=== PATIENT | male | born 1955 | race Caucasian/White ===

== ENCOUNTER 2017-08-01 12:51 | Inpatient (IN) ==
[2017-08-01] MEDS ORDERED: Aspirin 325 MG TABLET PO ONE (13:13)
[2017-08-01] MEDS ORDERED: 0.9 % Sodium Chloride 1,000 ML IVC ONE (13:33)
--- NOTE | 2017-08-01 13:37 | Emergency Department Note ---
Disposition Clinical Impression: Atrial fibrillation with RVR Disposition: Admitted As Inpatient Condition: Fair Referrals: Jr Melo DO [Primary Care Provider] - Forms: ED Satisfaction Letter Time of Disposition: 15:55 General Adult HPI - General Chief complaint: ED Arrhythmia/Palpitations Stated complaint: A-fib, needs admitted Time Seen by Provider: 08/01/17 13:12 Source: patient Mode of arrival: ambulatory Limitations: no limitations Nursing Notes Reviewed: Yes Vital Signs Reviewed: Yes - History of Present Illness HPI Narrative: 62 old male presents to the emergency department from Dr. Franklin's office for fast heart rate. Patient does have history of atrial fibrillation. But is not on any medications for rate control or rhythm control. This is not always any according to the patient. Patient does state that he is on Xarelto . History on proximally one year ago. Patient states the last 2 days he has had mild chest pressures. He says his main L left-sided nonradiating he describes as 3 out of 10. Today he is having 0 pain [address] that [address] Chamorro was worried about his heart rate now slightly sent him over here to be admitted for further evaluation. Patient is not having any nausea or vomiting he has no radiation of the pain. Patient is otherwise in have no complaints. Including no headaches, blurry vision, neck pain, back pain, fevers, chills, nausea, vomiting , chest pain, shortness of breath, abdominal pain, pain or tingling going down the arms or legs or any generalized weakness. Pain Scale: 2 - Related Data Home Medications Medication Instructions Recorded Confirmed Albuterol Sulfate [Ventolin Hfa] 18 gm IH Q4H PRN 05/02/16 08/30/16 Budesonide/Formoterol 80/4.5 1 puff IH DAILY 05/02/16 08/30/16 [Symbicort 80/4.5] Cetirizine HCl [Zyrtec] 10 mg PO DAILY 05/02/16 08/30/16 Cyclobenzaprine [Flexeril] 10 mg PO HS 05/02/16 08/30/16 Gabapentin [Neurontin] 300 mg PO TID 05/02/16 08/30/16 HYDROcodone/Acet 5/325 mg [[place] 1 tab PO Q6H PRN 05/02/16 08/30/16 5-325 mg] Metoprolol [Lopressor] 150 mg PO DAILY 05/02/16 08/30/16 Omeprazole 40 mg PO DAILY 05/02/16 08/30/16 Previous Rx's Medication Instructions Recorded Promethazine/Codeine 5 ml PO Q6HR PRN #120 ml 05/02/16 [Phenergan/Codeine] Allergies Allergy/AdvReac Type Severity Reaction Status Date / Time No Known Allergies Allergy Verified 12/17/15 18:01 Review of Systems: 10 point review of systems done and negative unless otherwise stated in the history of present illness. All systems ED: reviewed and negative except as stated. Review of Systems: As Per HPI Past Medical History - Past Medical History Attestation: Yes The following information was validated with the patient. Source: patient Medical history: Reports: arthritis, atrial fibrillation, COPD, myocardial infarction Psychiatric history: Reports: no psych history - Social History Smoking Status: Current every day smoker Smokeless Tobacco Status: No Alcohol use: Reports: none Drug use: Reports: none Physical Exam - General Limitations: no limitations General appearance: alert - Head Head exam: atraumatic, normocephalic, normal inspection - Eye Eye exam: Present: normal appearance, PERRL, EOMI - ENT ENT exam: normal exam, normal oropharynx, mucous membranes moist - Neck Neck exam: Present: normal inspection, full ROM, trachea midline - Chest Chest inspection: Present: normal inspection, symmetric chest wall rise - Respiratory Respiratory exam: Present: normal lung sounds bilaterally - Cardiovascular Cardiovascular exam: Present: tachycardia, irregular rhythm, normal heart sounds - Abdominal Exam Abdominal exam: Present: soft, Non-Tender. Absent: tenderness, distention, guarding, rebound, rigidity - Extremities Exam Extremities exam: Present: normal inspection, full ROM. Absent: tenderness, pedal edema - Expanded Lower Extremity Exam Neurovascular/Tendon exam: Present: normal capillary refill. Absent: pulse deficit, motor deficit, sensory deficit, tendon deficit Gait: observed and normal - Back Exam Back exam: Present: normal inspection, full ROM. Absent: tenderness, CVA tenderness (R), CVA tenderness (L) - Neurological Exam Neurological exam: Present: alert, oriented X3 - Skin Skin exam: Present: warm, dry, intact, normal color Course Course Narrative: We will do basic chest pain workup and arrhythmia workup including CBC, BMP, troponin as well as EKG and chest x-ray, thyroid. Will give aspirin. Disposition pending results of most likely this is admission. - Reevaluation(s) Reevaluation #1: EKG came back showing A. fib with RVR patient has a blood pressure 107 systolic due to this we will start low on his diltiazem drip will not give a bolus. We will start a 0.5 mg. Time: 14:38 Vital Signs Temperature 97.7 F 08/01/17 13:01 Pulse Rate 139 08/01/17 13:01 Respiratory Rate 18 08/01/17 13:01 Blood Pressure 107/86 08/01/17 13:01 O2 Sat by Pulse Oximetry 98 08/01/17 13:01 Temperature 97.7 F 08/01/17 13:01 Pulse Rate 154 08/01/17 15:36 Respiratory Rate 20 08/01/17 15:36 Blood Pressure 105/87 08/01/17 15:36 O2 Sat by Pulse Oximetry 94 08/01/17 15:36 Oxygen Delivery Oxygen Delivery Room Air Medical Decision Making - MDM Narrative Medical decision making narrative: 62-year-old male presented to the emergency department complaining of mild chest pain has since gone away since he came here. We did give patient aspirin. He was here with A. fib with RVR. EKG did show that. Did start patient on a diltiazem drip due to patient being hypotensive at 107 systolic we started at 0.5 mg and we will titrate up from there pending his blood pressure holds. Also gave him IV fluids helped the pressure. All patient's labs came back normal. Including a chest x-ray. He had a negative troponin. Patient is currently anticoagulated with Xarelto. Patient will be admitted to the hospitalist service I spoke with Dr. Kline who agreed to accept the patient. He said prior to him going up he would like us to give 0.5 mg of IV digoxin for a loading dose. I did order this. Patient is admitted in stable condition. Chest X-Ray 08/01/17 13:13 IMPRESSION: 1. Worsening pulmonary edema. D/ / Fritz Bernstein MD / Fritz Bernstein MD Interpreting Provider: Fritz Bernstein MD - Medical Records Medical records reviewed: Yes I reviewed the patient's medical records. - Lab Data Lab results reviewed: Yes I reviewed the patient's lab results. Result diagrams: 08/01/17 13:30 08/01/17 13:30 Lab Results 08/01/17 08/01/17 08/01/17 Range/Units 13:30 13:30 13:30 WBC 11.1 (4.3-11.1) K/mcL RBC 4.15 L (4.19-5.50) M/mcL Hgb 13.5 (12.9-16.9) g/dL Hct 40.7 (37.5-50.1) % MCV 98.1 (83.0-100.0) fL MCH 32.5 (28.0-33.3) pg MCHC 33.2 (31.6-35.5) g/dL RDW 14.8 H (11.5-14.5) % Plt Count 228 (140-400) K/mcL MPV 9.6 (9.4-12.4) fL Immature Gran % 0.4 (0-4) % Seg Neutrophils % 64.4 % Lymphocytes % 26.1 % Monocytes % 8.1 % Eosinophils % 0.6 % Basophils % 0.4 % Neutrophils # 7.2 (1.6-8.9) K/mcL Lymphocytes # 2.9 (0.6-4.6) K/mcL Monocytes # 0.9 (0.0-1.3) K/mcL Eosinophils # 0.1 (0.0-0.6) K/mcL Basophils # 0.0 (0.0-0.2) K/mcL PT 16.3 H (9.4-12.1) Seconds INR 1.5 APTT 35.4 (26.0-36.0) Seconds Sodium 136 (136-145) mEq/L Potassium 4.0 (3.5-5.1) mEq/L Chloride 108 H (98-107) mEq/L Carbon Dioxide 22 L (23-29) mEq/L BUN 16 (8-23) mg/dL Creatinine 0.89 (0.70-1.30) mg/dL Est GFR ( Amer) > 60 (> 60) Est GFR (Non-Af Amer) > 60 (> 60) BUN/Creatinine Ratio 18 (6-26) Glucose 121 H (70-105) mg/dL Calculated Osmolality 284 (280-300) Calcium 9.6 (8.6-10.3) mg/dL Magnesium 2.1 (1.6-2.6) mg/dL Troponin I (< 0.04) ng/mL TSH 1.616 (0.340-5.600) mcIU/mL 08/01/17 Range/Units 13:30 WBC (4.3-11.1) K/mcL RBC (4.19-5.50) M/mcL Hgb (12.9-16.9) g/dL Hct (37.5-50.1) % MCV (83.0-100.0) fL MCH (28.0-33.3) pg MCHC (31.6-35.5) g/dL RDW (11.5-14.5) % Plt Count (140-400) K/mcL MPV (9.4-12.4) fL Immature Gran % (0-4) % Seg Neutrophils % % Lymphocytes % % Monocytes % % Eosinophils % % Basophils % % Neutrophils # (1.6-8.9) K/mcL Lymphocytes # (0.6-4.6) K/mcL Monocytes # (0.0-1.3) K/mcL Eosinophils # (0.0-0.6) K/mcL Basophils # (0.0-0.2) K/mcL PT (9.4-12.1) Seconds INR APTT (26.0-36.0) Seconds Sodium (136-145) mEq/L Potassium (3.5-5.1) mEq/L Chloride (98-107) mEq/L Carbon Dioxide (23-29) mEq/L BUN (8-23) mg/dL Creatinine (0.70-1.30) mg/dL Est GFR ( Amer) (> 60) Est GFR (Non-Af Amer) (> 60) BUN/Creatinine Ratio (6-26) Glucose (70-105) mg/dL Calculated Osmolality (280-300) Calcium (8.6-10.3) mg/dL Magnesium (1.6-2.6) mg/dL Troponin I < 0.03 (< 0.04) ng/mL TSH (0.340-5.600) mcIU/mL - Radiology Data Radiology results reviewed: Yes I reviewed the patient's radiology results. - EKG Data EKG #1 EKG attestation: Yes I reviewed and interpreted this EKG. EKG results narrative: EKG done at 1306 revealed myself and attending shows atrial fibrillation with RVR at a rate of 149, QRS 92, QTC 361 with a normal axis. There is no acute ST changes no acute T-wave abnormalities nor signs of ischemia. No signs of hypertrophy or heart strain or heart block. No signs of WPW/Brugada syndrome. This is compared with an old EKG done 12/17/15 which shows essentially no changes and also A. fib with RVR. Attestation Statement - Attestation Attestation: I, Jeremy Temple DO, examined this patient [id number] and my medical decision-making was reviewed with Dr. Moisés Joseph, Resident Physician. I agree with the documented findings, disposition and treatment plan as described except to the extent set forth below. Please see my progress notes for details. 62-year-old male presents from the cardiology office today for evaluation of increased work of breathing some mild exertional shortness of breath and tachycardia with A. fib RVR. Patient was seen and evaluated in outside facility within the last several months and was told that he possibly had A. fib. Patient started on Xarelto that time. He is already have a scheduled appointment with his private sector executive for repeat evaluation. While there they noticed his heart rate was significantly high. Patient denies any other symptoms or issues at this time. Patient is otherwise resting comfortably in the bed. On presentation here this is a very healthy gentleman with no other significant medical history according to him. Patient denies any trauma or injury. No recent medication changes except for this relative. Vital signs on presentation showed slight hypotension. His heart rate was 140. He denies any other symptomatic presentation this time. EKG does confirm A. fib with RVR. Labs otherwise unremarkable. No acute signs of electrolyte abnormality at this point. Patient was discussed with the hospitalist for admission considering the physical exam workup otherwise unremarkable. He does have a known mitral regurgitation with without any other issue. Hospitalist did recommend adding on digoxin secondary to heart rate. We are slowly titrating up the Cardizem secondary to the hypotension. Vital signs otherwise been stable except for tachycardia. Patient is again still denying any symptoms or complaints. Is currently on Xarelto. Patient will be admitted for further evaluation and management. No other concerns or issues noted at this time. See detailed documentation of physical exam, medical intervention, medical decision-making and disposition and the resident physician's note. 35 minutes of critical care present secondary to the attributable IV medication. 1600 Patient is still feeling well. Heart rate is not responding aggressively to the Cardizem. His blood pressure has still been labile. Patient is asymptomatic. Digoxin will be added on for rate control with the concern for hypotension. No other acute issues are noted. Patient will be admitted to the floor without any other concerns or abnormality.
[2017-08-01 13:41] LABS: Basophils % 0.4 %; Eosinophils # 0.1 K/mcL (0.0-0.6); Eosinophils % 0.6 %; Hematocrit 40.7 % (37.5-50.1); Hemoglobin 13.5 g/dL (12.9-16.9); Immature Granulocytes % 0.4 % (0-4); Lymphocytes # 2.9 K/mcL (0.6-4.6); Lymphocytes % 26.1 %; Mean Corpuscular HGB Conc 33.2 g/dL (31.6-35.5); Mean Corpuscular Hemoglobin 32.5 pg (28.0-33.3); Mean Corpuscular Volume 98.1 fL (83.0-100.0); Mean Platelet Volume 9.6 fL (9.4-12.4); Monocytes # 0.9 K/mcL (0.0-1.3); Monocytes % 8.1 %; Neutrophils # 7.2 K/mcL (1.6-8.9); Platelet Count 228 K/mcL (140-400); Red Blood Count 4.15 M/mcL (4.19-5.50); Red Cell Distribution Width 14.8 % (11.5-14.5); Segmented Neutrophils % 64.4 %
[2017-08-01 13:48] LABS: INR 1.5; Prothrombin Time 16.3 Seconds (9.4-12.1)
[2017-08-01 13:51] LABS: Activated Partial Thrombo Time 35.4 Seconds (26.0-36.0)
[2017-08-01 14:01] LABS: BUN/Creatinine Ratio 18 (6-26); Blood Urea Nitrogen 16 mg/dL (8-23); Calcium 9.6 mg/dL (8.6-10.3); Carbon Dioxide 22 mEq/L (23-29); Chloride 108 mEq/L (98-107); Glucose 121 mg/dL (70-105); Magnesium 2.1 mg/dL (1.6-2.6); Osmolality,Calculated 284 (280-300); Sodium 136 mEq/L (136-145); eGFR For African Americans > 60 (> 60); eGFR For Non-African Americans > 60 (> 60)
[2017-08-01 14:16] LABS: Thyroid Stimulating Hormone 1.616 mcIU/mL (0.340-5.600)
[2017-08-01] MEDS ORDERED: *HR* Digoxin 0.5 MG/2 ML AMPUL IVP ONE ×2 (15:46→18:48)
[2017-08-01] MEDS ORDERED: 0.9 % Sodium Chloride 500 ML IVC ONE (18:49)
[2017-08-01] MEDS ORDERED: *HR* HYDROcodone/Acet 5/325 mg TABLET PO PRN (19:45)
[2017-08-01] MEDS ORDERED: *HR* Metoprolol 5 MG/5 ML VIAL IVP ONE (19:46)
--- NOTE | 2017-08-01 21:23 | Internal Med History&Physical ---
Date of Encounter: 08/01/17 Time of Encounter: 17:00 Assessment and Plan (1) Atrial fibrillation with RVR Current visit: Yes Status: Acute -Patient's atrial fibrillation not controlled on metoprolol 150 mg daily and was sent to the ER by back tender pulp drier -Patient's blood pressure is not able to tolerate Cardizem drip and has not responded to digoxin. -Discussed with cardiology and recommendations for amiodarone drip -Cardiology consulted and will be following (2) COPD (chronic obstructive pulmonary disease) Current visit: Yes Status: Acute -Continue Symbicort Qualifiers: COPD type: unspecified COPD Qualified Code(s): J44.9 - Chronic obstructive pulmonary disease, unspecified (3) GERD (gastroesophageal reflux disease) Current visit: Yes Status: Acute -Continue omeprazole Qualifiers: Esophagitis presence: esophagitis presence not specified Qualified Code(s) : K21.9 - Gastro-esophageal reflux disease without esophagitis (4) DVT prophylaxis Current visit: Yes Status: Acute -Continue Xarelto Internal Medicine - H&P: HPI Chief complaint: palipatations Admitted From: Home History of present illness: Patient is a 62-year-old male with past medical history significant for atrial fibrillation, coronary artery disease and COPD who presented to the ER on due to palpitations. Patient was sent to the ER from back tender pulp drier office due tachycardia. In the ER, patient was found to have a heart rate in the 150s. Patient will be admitted to the medical surgical floor for management of major fibrillation with RVR. Past Med Surg Social Fam HX - Past Medical History Medical history: arthritis, atrial fibrillation, COPD, myocardial infarction Psychiatric history: no psych history - Past Surgical History Surgical History: orthopedic, other - Social History Smoking Status: Current every day smoker Packs per day: 1/2 Smokeless Tobacco Status: No Alcohol use: none Drug use: none - Family History Mother Hx Family Cardiac Disorders: Yes Father Hx Family Cancer: Yes Brother Hx Family Respiratory Disorders: Yes (infant.) Internal Medicine - H&P: Meds Albuterol Sulfate [Ventolin Hfa] 18 gm IH Q4H PRN 05/02/16 [History] Budesonide/Formoterol 80/4.5 [Symbicort 80/4.5] 1 puff IH DAILY 05/02/16 [ History] Cetirizine HCl [Zyrtec] 10 mg PO DAILY 05/02/16 [History] Cyclobenzaprine [Flexeril] 10 mg PO HS 05/02/16 [History] Gabapentin [Neurontin] 300 mg PO TID 05/02/16 [History] HYDROcodone/Acet 5/325 mg [[place] 5-325 mg] 1 tab PO Q6H PRN 05/02/16 [History] Metoprolol [Lopressor] 150 mg PO DAILY 05/02/16 [History] Omeprazole 40 mg PO DAILY 05/02/16 [History] Promethazine/Codeine [Phenergan/Codeine] 5 ml PO Q6HR PRN #120 ml 05/02/16 [Rx] 3 Allergy/AdvReac Type Severity Reaction Status Date / Time No Known Allergies Allergy Verified 12/17/15 18:01 All Systems PM: A 10-system review of systems was performed and is negative for pertinent findings except as documented above in the HPI. - Constitutional Vitals: Temp Pulse Resp BP Pulse Ox 98.1 F 139 16 105/64 92 08/01/17 19:02 08/01/17 19:16 08/01/17 19:02 08/01/17 20:30 08/01/17 19:02 General appearance: Present: A&O X 3 - Eye Eye exam: Absent: conjunctival injection - ENT ENT exam: Present: mucous membranes moist - Respiratory Respiratory exam: Present: CTAB. Absent: accessory muscle use, rales, rhonchi, wheezes - Cardiovascular Cardiovascular exam: Present: irregular rhythm, tachycardia - GI/Abdominal GI/Abdominal exam: Present: normal bowel sounds, soft, no peritoneal signs. Absent: distended, tenderness - Neurological Exam Neurological exam: Present: oriented X3 - Psychiatric Psychiatric exam: Present: normal mood - Skin Skin exam: Present: normal color Internal Med - H&P Results - Labs CBC & Chem 7: 08/01/17 13:30 08/01/17 13:30
[2017-08-01] MEDS ORDERED: Naloxone 0.4 MG/ML INJ IVP PRN (21:39)
[2017-08-01] MEDS ORDERED: *HR* Heparin 5,000 UNIT/ML VIAL SQ SCH (22:00)
[2017-08-01] MEDS ORDERED: Amiodarone Premix 360 MG/200 ML BAG IVC ONE (22:00)
[2017-08-01] MEDS ORDERED: Pantoprazole 40 MG VIAL IVP ONE (22:09)
[2017-08-02] MEDS ORDERED: Ondansetron 4 MG/2 ML VIAL ONE (01:59)
[2017-08-02] MEDS: Ondansetron 4 MG/2 ML VIAL IVP PRN ×2 (02:03→02:51)
[2017-08-02] MEDS ORDERED: *HR* Promethazine 25 MG/ML VIAL IVP ONE (02:43)
[2017-08-02] MEDS ORDERED: *HR* Promethazine 25 MG/ML VIAL ONE (02:47)
[2017-08-02] MEDS ORDERED: Naloxone 0.4 MG/ML INJ IVP PRN (03:03)
[2017-08-02] MEDS ORDERED: Amiodarone Premix 360 MG/200 ML BAG IVC SCH (04:00)
[2017-08-02] MEDS: Amiodarone Premix 360 MG/200 ML BAG IVC SCH ×2 (04:37→18:07)
[2017-08-02] MEDS: *HR* Enoxaparin 120 MG/0.8 ML SYRINGE SQ SCH ×2 (04:38→18:02)
[2017-08-02 05:50] LABS: Basophils # 0.1 K/mcL (0.0-0.2); Basophils % 0.5 %; Eosinophils # 0.2 K/mcL (0.0-0.6); Eosinophils % 2.2 %; Hematocrit 38.2 % (37.5-50.1); Hemoglobin 12.5 g/dL (12.9-16.9); Immature Granulocytes % 0.3 % (0-4); Lymphocytes # 3.1 K/mcL (0.6-4.6); Mean Corpuscular HGB Conc 32.7 g/dL (31.6-35.5); Mean Corpuscular Hemoglobin 32.7 pg (28.0-33.3); Mean Platelet Volume 9.5 fL (9.4-12.4); Monocytes # 0.9 K/mcL (0.0-1.3); Monocytes % 7.9 %; Neutrophils # 6.7 K/mcL (1.6-8.9); Platelet Count 186 K/mcL (140-400); Red Blood Count 3.82 M/mcL (4.19-5.50); Red Cell Distribution Width 14.9 % (11.5-14.5); Segmented Neutrophils % 61.1 %
[2017-08-02] MEDS ORDERED: *HR* Enoxaparin 120 MG/0.8 ML SYRINGE SQ SCH (06:00)
[2017-08-02 06:08] LABS: BUN/Creatinine Ratio 15 (6-26); Blood Urea Nitrogen 15 mg/dL (8-23); Calcium 8.7 mg/dL (8.6-10.3); Carbon Dioxide 26 mEq/L (23-29); Chloride 111 mEq/L (98-107); Glucose 105 mg/dL (70-105); Osmolality,Calculated 293 (280-300); Sodium 141 mEq/L (136-145); eGFR For African Americans > 60 (> 60); eGFR For Non-African Americans > 60 (> 60)
[2017-08-02] MEDS: *HR* HYDROcodone/Acet 5/325 mg TABLET PO PRN ×2 (10:03→21:32)
--- NOTE | 2017-08-02 10:42 | Cardiology Consult Note ---
Date of Encounter: 08/02/17 Time of Encounter: 09:00 Assessment and Plan (1) Atrial fibrillation with RVR Current Visit: Yes Status: Acute Per cardiology: -Admitted with a.fib RVR from primary narrative writer office. -Recently treated for pneumonia at outside facility, -Chads 2vasc 0. Was not previously on anticoagulation until seen by outside facility, was then started on xarelto 15mg. -Of note, creatinine clearance with ideal body weight 99ml/min. Has missed doses of xarelto in the past 30 days. -Pateint placed on therapeutic lovenox per primary service. -Currently on amiodarone drip, did not tolerate cardizem due to hypotension. -BP currently 100-110s. -K, Mg, TSH within normal limits. -Continue amiodarone drip. -Will attempt to start low dose beta roland if BP will allow. -Will check TTE. -Will decide regarding terminal gauger anticoagulation pending TTE. -Will continue to monitor. (2) Mitral valve prolapse Current Visit: Yes Status: Acute Per cadiology: -KNown MVP . -TTE 08/2016 with LVEF 55%, moderate diastolic dysfunction, bileaflet mitral valve prolapse, mild NH, no segmental wall motion abnormalities. -Will repeat TTE. (3) Tobacco abuse Current Visit: Yes Status: Acute Per cardiology: -KNown tobacco abuse. -SMoking 1-07/07 ppd. -Smoking cessation education provided. Discussion w patient/family: The assessment and plan as outlined above was discussed with the patient and/or family members who expressed understanding and agreement. All questions were answered. Thank you for involving us in the care of your patient. Please call with any questions. Discussed and reviewed with . History of Present Illness Consult date: 08/01/17 Requesting physician: Carlos Mitchell Consult reason: a.fib RVR Chief complaint: high HR History of present illness: Mr. Ahmadi is a 62 year old male with a relevant past medical history of PAF, MVP, asthma, COPD. Patient presented to [facility] after being seen by his primary narrative writer, , and noted to be in atrial fibrillation with RVR. Patient denies chest pain. Patient reports he feels more short of breath than usual. Denies palpitations/fluttering. Of note, patient was not previously on anticoagulation, however was evaluated at an outside facility and started on xarelto 15mg daily. Patient states he started this medication on 07/07/17 and has missed doses since inititation. Patient reports he was treated for pneumonia at outside facility. Past Med Surg Social Fam HX - Past Medical History Attestation: Yes The following information was validated with the patient. Source: patient, old records reviewed, obtained from family Medical history: arthritis, atrial fibrillation, COPD, myocardial infarction Psychiatric history: no psych history - Past Surgical History Surgical History: orthopedic, other - Social History Smoking Status: Current every day smoker Packs per day: 1/2 Smokeless Tobacco Status: No Alcohol use: none Drug use: none - Family History Mother Hx Family Cardiac Disorders: Yes Father Hx Family Cancer: Yes Brother Hx Family Respiratory Disorders: Yes (infant.) Medications and Allergies Albuterol Sulfate [Ventolin Hfa] 2 inh IH Q4H PRN 05/02/16 [History] Cetirizine HCl [Zyrtec] 10 mg PO DAILY 05/02/16 [History] Cyclobenzaprine [Flexeril] 10 mg PO HS 05/02/16 [History] Gabapentin [Neurontin] 300 mg PO HS 05/02/16 [History] HYDROcodone/Acet 5/325 mg [[place] 5-325 mg] 1 tab PO BID PRN 05/02/16 [History] Omeprazole 40 mg PO DAILY 05/02/16 [History] Albuterol Neb [Proventil Neb] 2.5 mg IH Q4HR 08/02/17 [History] Budesonide/Formoterol 160/4.5 [Symbicort 160/4.5] 2 puff IH BIDR 08/02/17 [ History] Metoprolol Succinate 150 mg PO DAILY 08/02/17 [History] Pravastatin Sodium [Pravachol] 40 mg PO HS 08/02/17 [History] Rivaroxaban [Xarelto] 15 mg PO 1700 08/02/17 [History] 3 Allergy/AdvReac Type Severity Reaction Status Date / Time No Known Allergies Allergy Verified 08/02/17 09:18 All Systems Review: A 10-system review of systems was performed and is negative for pertinent findings except as documented above in the HPI. - Cardiovascular Cardiovascular: as per HPI, dyspnea on exertion, rapid heart rate Physical Examination Vital Signs, Last 4 Hours Temp Pulse Resp BP Pulse Ox 08/02/17 07:10 98.3 F 106 19 111/88 91 General: Conversant, No Apparent Distress HEENT: Atraumatic, Normocephaly, Mucus Membranes Moist Neck: No JVD, Normal carotid pulses Cardiac: Other (Irregularly irregular) Lungs: Normal Breath Sounds, No Wheeze, Rales, Rhonchi Neuro: Alert and responsive, No focal deficits noted Abdomen: Soft, Non-Tender Skin: No rashes noted on visualized skin Musculoskeletal: No Chest Wall Tenderness Extremities: No Clubbing, No Cyanosis, No Edema, Normal Pulses Results 08/02/17 05:42 08/02/17 05:42 Lab Results Impressions Chest X-Ray 08/01/17 13:13 IMPRESSION: 1. Worsening pulmonary edema. D/ / Fritz Bernstein MD / Fritz Bernstein MD Interpreting Provider: Fritz Bernstein MD Active Medications Hydrocodone Bitart/Acetaminophen ([place] 5-325 Mg) 1 tab PO Q6HR PRN PRN Reason: Pain Stop: 01/31/18 19:46 Last Admin: 08/02/17 10:03 Dose: 1 tab Enoxaparin Sodium (Lovenox) 110 mg 1 mg/kg (110 mg) SQ Q12HR ADAM PRN Reason: Protocol Stop: 02/01/18 06:01 Last Admin: 08/02/17 04:38 Dose: 110 mg Amiodarone HCl/Dextrose (Amiodarone Drip Premix 360mg/200ml) 360 mg in 200 mls @ 16.667 mls/hr IVC CONT ADAM PRN Reason: 0.5 MG/MIN Stop: 01/31/18 05:01 Last Admin: 08/02/17 04:37 Dose: 0.5 mg/min, 16.667 mls/hr Naloxone HCl (Narcan) 0.4 mg IVP Q2MIN PRN PRN Reason: SEE COMMENTS Stop: 01/31/18 21:40 Laboratory Tests 08/01/17 08/01/17 08/02/17 13:30 13:30 05:42 Hgb 12.5 L Potassium Creatinine Magnesium Troponin I < 0.03 TSH 1.616 08/02/17 08/02/17 08/02/17 05:42 05:42 05:42 Hgb Potassium 4.0 Creatinine 0.99 Magnesium 2.1 Troponin I < 0.03 TSH - Imaging and Cardiology Chest Xray: report reviewed Echo: pending, report reviewed - EKG Interpretation EKG results cardiology: personally reviewed (ECG with atrial fibrillation with RVR.), other (Telemetry reviewed with average HR previous 12 hours noted to be 127, atrial fibrllation with RVR.) Consult Discharge Plan - Plan Referrals: Shasha Manning CNP [Advanced Practice Nurse] - 08/14/17 9:30 am Houston Franklin MD [Partnered Physician] - (Office will call you at home with a follow up appointment)
--- NOTE | 2017-08-02 11:14 | Internal Med Progress Note ---
Date of Encounter: 08/02/17 Time of Encounter: 11:12 - Assessment and plan (1) Acute respiratory failure with hypoxia Current Visit: Yes Status: Acute Assessment and plan: Continue with O2 support and wean down as tolerated. Plan as below. (2) CHF exacerbation Current Visit: Yes Status: Acute Assessment and plan: Likely an acute exacerbation of diastolic heart failure. We will give the patient 20 mg of IV Lasix this morning. Continue with O2 support. Wean down as tolerated. Follow-up on echo. Continue with nebulizers. Qualifiers: Congestive heart failure type: diastolic Qualified Code(s): I50.33 - Acute on chronic diastolic (congestive) heart failure (3) Atrial fibrillation with RVR Current Visit: Yes Status: Acute Assessment and plan: Communications Project Lead consulted and following. I appreciate their help. Continue with amiodarone drip. Beta roland is ordered. Follow up on echo. Anticoagulation with therapeutic Lovenox currently. Follow up on cardiology's recommendations regarding discharge anticoagulation (4) COPD (chronic obstructive pulmonary disease) Current Visit: Yes Status: Acute Assessment and plan: Not in exacerbation. Continue nebs. Continue Symbicort Qualifiers: COPD type: unspecified COPD Qualified Code(s): J44.9 - Chronic obstructive pulmonary disease, unspecified (5) Tobacco abuse Current Visit: Yes Status: Acute Assessment and plan: Will add a nicotine patch. patient is counseled. (6) DVT prophylaxis Current Visit: Yes Status: Acute Assessment and plan: Therapeutic Lovenox - Subjective Interval history: Patient was seen and examined. Admitted from the automotive glazier's office with Damion stuart with RVR. Started on amiodarone drip. Was given digoxin yesterday. Cardizem drip could not be started as blood pressure was on the lower side. Rate is better controlled currently. Cardiology is consulted. Has been afebrile. Denies any chest pain. Currently on 2 L of oxygen. - Constitutional Vitals: Temp Pulse Resp BP Pulse Ox 98.3 F 106 19 111/88 91 08/02/17 07:10 08/02/17 07:10 08/02/17 07:10 08/02/17 07:10 08/02/17 07:10 General appearance: Present: A&O X 3 Exam: GEN: NAD CVS: Irregular. Tachycardic. S1, S2, No m/r/g RESP: Crackles at the bases ABD: Soft, NT, ND, +BS EXT: No edema. 2+ DP. No rashes NEURO: Nonfocal Internal Medicine: Result - Labs CBC & Chem 7: 08/02/17 05:42 08/02/17 05:42 Labs: Short CBC 08/02/17 Range/Units 05:42 WBC 11.0 (4.3-11.1) K/mcL Hgb 12.5 L (12.9-16.9) g/dL Hct 38.2 (37.5-50.1) % Plt Count 186 (140-400) K/mcL Neutrophils # 6.7 (1.6-8.9) K/mcL BMP 08/02/17 05:42 Sodium 141 Potassium 4.0 Chloride 111 H Carbon Dioxide 26 BUN 15 Creatinine 0.99 Glucose 105 Calcium 8.7 Cardiac Enzymes 08/02/17 Range/Units 05:42 Troponin I < 0.03 (< 0.04) ng/mL - ABG Interpretation ABG results: PT/INR, D-dimer PT 16.3 Seconds (9.4-12.1) H 08/01/17 13:30 Consult Discharge Plan - Plan Referrals: Shasha Manning CNP [Advanced Practice Nurse] - 08/14/17 9:30 am Houston Franklin MD [Partnered Physician] - (Office will call you at home with a follow up appointment)
[2017-08-02] MEDS ORDERED: Furosemide 20 MG/2 ML VIAL IVP ONE (11:15)
[2017-08-02] MEDS ORDERED: Ipratropium/Albuterol Neb 3 ML IH PRN (11:15)
[2017-08-02] MEDS: Metoprolol XL (24 HR) Succ 25 MG TAB.ER.24H PO SCH (11:29)
[2017-08-02] MEDS: Nicotine 21 MG PATCH.TD24 TD SCH (11:57)
--- NOTE | 2017-08-02 14:15 | Electrocardiograph Report ---
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
[2017-08-02] MEDS: Budesonide/Formoterol 160/4.5 MDI IH SCH ×2 (16:30→21:52)
[2017-08-02] MEDS ORDERED: GuaiFENesin Liq 200 MG/10 ML UDC PO PRN (18:15)
[2017-08-02] MEDS ORDERED: GuaiFENesin/Pseudophedrine TABLET PO PRN (20:51)
[2017-08-02] MEDS: Gabapentin 300 MG CAPSULE PO SCH (21:28)
[2017-08-03 03:53] LABS: Basophils # 0.1 K/mcL (0.0-0.2); Basophils % 0.6 %; Eosinophils # 0.3 K/mcL (0.0-0.6); Eosinophils % 3.7 %; Hematocrit 37.9 % (37.5-50.1); Hemoglobin 12.5 g/dL (12.9-16.9); Immature Granulocytes % 0.2 % (0-4); Lymphocytes # 2.6 K/mcL (0.6-4.6); Lymphocytes % 29.8 %; Mean Corpuscular Hemoglobin 32.5 pg (28.0-33.3); Mean Corpuscular Volume 98.4 fL (83.0-100.0); Mean Platelet Volume 9.7 fL (9.4-12.4); Monocytes # 0.9 K/mcL (0.0-1.3); Monocytes % 10.2 %; Neutrophils # 4.9 K/mcL (1.6-8.9); Platelet Count 186 K/mcL (140-400); Red Blood Count 3.85 M/mcL (4.19-5.50); Red Cell Distribution Width 14.8 % (11.5-14.5); Segmented Neutrophils % 55.5 %
[2017-08-03 04:14] LABS: BUN/Creatinine Ratio 17 (6-26); Blood Urea Nitrogen 15 mg/dL (8-23); Calcium 8.8 mg/dL (8.6-10.3); Carbon Dioxide 24 mEq/L (23-29); Chloride 108 mEq/L (98-107); Glucose 110 mg/dL (70-105); Osmolality,Calculated 291 (280-300); Potassium 3.8 mEq/L (3.5-5.1); Sodium 140 mEq/L (136-145); eGFR For African Americans > 60 (> 60); eGFR For Non-African Americans > 60 (> 60)
[2017-08-03] MEDS: Amiodarone Premix 360 MG/200 ML BAG IVC SCH (04:17)
[2017-08-03] MEDS: *HR* Enoxaparin 120 MG/0.8 ML SYRINGE SQ SCH (06:00)
[2017-08-03] MEDS: Metoprolol XL (24 HR) Succ 25 MG TAB.ER.24H PO SCH (08:08)
[2017-08-03] MEDS: Nicotine 21 MG PATCH.TD24 TD SCH (08:09)
[2017-08-03] MEDS: Budesonide/Formoterol 160/4.5 MDI IH SCH ×2 (10:41→22:49)
--- NOTE | 2017-08-03 11:30 | Event Note ---
Date of Encounter: 08/03/17 Time of Encounter: 11:27 - Cardiology Event Note Patient remains in atrial fibrillation with RVR with HR 120's despite amiodarone gtt. Discussed with Dr. Wisam Gutierrez. Proceed with KIMBERLEY/DCCV as planned. Currently on lovenox SQ. Recently started on xarelto in-out patient setting. Will need KIMBERLEY.
--- NOTE | 2017-08-03 11:56 | Internal Med Progress Note ---
Date of Encounter: 08/03/17 Time of Encounter: 11:53 - Assessment and plan (1) Acute respiratory failure with hypoxia Current Visit: Yes Status: Acute Assessment and plan: On room air now after diuresis. was on 2L previously. O2 sats were 90% at the time. Plan as below. (2) CHF exacerbation Current Visit: Yes Status: Acute Assessment and plan: Likely an acute exacerbation of diastolic heart failure. Status post 20 mg of IV Lasix on 08/02. No need for Lasix today. He is on room air. Resting comfortably. Echo results noted. Continue with nebulizers. Qualifiers: Congestive heart failure type: diastolic Qualified Code(s): I50.33 - Acute on chronic diastolic (congestive) heart failure (3) Atrial fibrillation with RVR Current Visit: Yes Status: Acute Assessment and plan: Head Of Training And Development consulted and following. I appreciate their help. Continue with amiodarone drip. On Beta roland. Echo results noted Anticoagulation with therapeutic Lovenox currently. Plans for cardioversion today. (4) COPD (chronic obstructive pulmonary disease) Current Visit: Yes Status: Acute Assessment and plan: Not in exacerbation. Continue nebs. Continue Symbicort Qualifiers: COPD type: unspecified COPD Qualified Code(s): J44.9 - Chronic obstructive pulmonary disease, unspecified (5) Tobacco abuse Current Visit: Yes Status: Acute Assessment and plan: Nicotine patch. patient is counseled. (6) DVT prophylaxis Current Visit: Yes Status: Acute Assessment and plan: Therapeutic Lovenox - Subjective Interval history: Patient was seen and examined. Remains in A. fib with RVR. Admitted from the distribution operation supervisor's office with A. fib with RVR. Started on amiodarone drip. Was given digoxin day of admission. Cardizem drip could not be started as blood pressure was on the lower side. Rate is better controlled currently. Cardiology is consulted with plans for cardioversion. Has been afebrile. Denies any chest pain. On room air. - Constitutional Vitals: Temp Pulse Resp BP Pulse Ox 97.4 F L 107 18 125/101 92 08/03/17 07:56 08/03/17 09:28 08/03/17 11:02 08/03/17 11:02 08/03/17 11:02 General appearance: Present: A&O X 3 Exam: GEN: NAD CVS: Irregular. Tachycardic. S1, S2, No m/r/g RESP: Crackles at the bases ABD: Soft, NT, ND, +BS EXT: No edema. 2+ DP. No rashes NEURO: Nonfocal Internal Medicine: Result - Labs CBC & Chem 7: 08/03/17 03:33 08/03/17 03:33 - ABG Interpretation ABG results: PT/INR, D-dimer PT 16.3 Seconds (9.4-12.1) H 08/01/17 13:30 Consult Discharge Plan - Plan Referrals: Shasha Manning CNP [Advanced Practice Nurse] - 08/14/17 9:30 am Houston Franklin MD [Partnered Physician] - (Office will call you at home with a follow up appointment)
[2017-08-03] MEDS ORDERED: Lidocaine Viscous Oral Soln 15 ML SOLUTION MM PRN (13:09)
[2017-08-03] MEDS ORDERED: 0.9 % Sodium Chloride 500 ML IVC ONE (13:10)
[2017-08-03] MEDS ORDERED: Tetracaine/Benzocaine/Butamben 200MG/SPRAY (100SPY/BOT) MM ONE (13:10)
[2017-08-03] MEDS: *HR* Midazolam HCl 5 MG/5 ML VIAL IVP PRN ×5 (14:05→14:25)
[2017-08-03] MEDS: *HR* FentaNYL (PF) 100 MCG/2 ML VIAL IVP PRN ×4 (14:05→14:25)
--- NOTE | 2017-08-03 15:41 | Event Note ---
Date of Encounter: 08/03/17 Time of Encounter: 15:56 - Cardiology Event Note Mr. Mukherjee underwent successful KIMBERLEY/DCCV today to NSR. Ok to convert AC back to xarelto. Discussed with Dr. Gutierrez, d/c amiodarone and increase metoprolol. TTE results noted: Atrial fibrillation with RVR during study. LVEF cannot be well quantified secondary to rapid heart rates. Grossly, LV systolic function appears mildly reduced. Indeterminate diastolic function. Normal right ventricular structure and function. Severely dilated left atrium. Mild-moderate mitral regurgitation by Doppler. Color-flow imaging is turbulent and not well visualized. Mitral valve prolapse is not optimally appreciated on this study. Mild tricuspid regurgitation. Moderate pulmonary hypertension. Recommend repeat study with heart rates normalize. KIMBERLEY completed. Discussed with Dr. Royal, unable to assess EF clearly due to elevated HR. Also appears to have a flailed MV leaflet. Recommend repeat full TTE.
[2017-08-03] MEDS ORDERED: Metoprolol XL (24 HR) Succ 25 MG TAB.ER.24H PO ONE (16:07)
[2017-08-03] MEDS: *HR* Rivaroxaban 10 MG TABLET PO SCH (16:29)
[2017-08-03] MEDS: Gabapentin 300 MG CAPSULE PO SCH (20:09)
[2017-08-03] MEDS: *HR* HYDROcodone/Acet 5/325 mg TABLET PO PRN (20:09)
[2017-08-04 06:35] LABS: Basophils % 0.5 %; Eosinophils # 0.3 K/mcL (0.0-0.6); Eosinophils % 3.5 %; Hematocrit 37.4 % (37.5-50.1); Hemoglobin 12.3 g/dL (12.9-16.9); Immature Granulocytes % 0.4 % (0-4); Lymphocytes # 2.2 K/mcL (0.6-4.6); Lymphocytes % 26.7 %; Mean Corpuscular HGB Conc 32.9 g/dL (31.6-35.5); Mean Corpuscular Hemoglobin 32.6 pg (28.0-33.3); Mean Corpuscular Volume 99.2 fL (83.0-100.0); Mean Platelet Volume 9.6 fL (9.4-12.4); Monocytes # 0.7 K/mcL (0.0-1.3); Monocytes % 8.4 %; Platelet Count 187 K/mcL (140-400); Red Blood Count 3.77 M/mcL (4.19-5.50); Red Cell Distribution Width 14.8 % (11.5-14.5); Segmented Neutrophils % 60.5 %
[2017-08-04 07:09] LABS: BUN/Creatinine Ratio 19 (6-26); Blood Urea Nitrogen 15 mg/dL (8-23); Calcium 8.8 mg/dL (8.6-10.3); Carbon Dioxide 26 mEq/L (23-29); Chloride 110 mEq/L (98-107); Glucose 105 mg/dL (70-105); Osmolality,Calculated 293 (280-300); Potassium 3.8 mEq/L (3.5-5.1); Sodium 141 mEq/L (136-145); eGFR For African Americans > 60 (> 60); eGFR For Non-African Americans > 60 (> 60)
[2017-08-04] MEDS: Budesonide/Formoterol 160/4.5 MDI IH SCH (08:25)
[2017-08-04] MEDS: *HR* HYDROcodone/Acet 5/325 mg TABLET PO PRN (08:27)
[2017-08-04] MEDS: Nicotine 21 MG PATCH.TD24 TD SCH (08:28)
[2017-08-04] MEDS ORDERED: Metoprolol XL (24 HR) Succ 25 MG TAB.ER.24H PO SCH (09:00)
--- NOTE | 2017-08-04 10:17 | Discharge Summary ---
Date of Encounter: 08/04/17 Time of Encounter: 10:11 - Discharge Diagnosis (1) Acute respiratory failure with hypoxia Priority: Primary Status: Acute (2) CHF exacerbation Priority: Primary Status: Acute Qualifiers: Congestive heart failure type: diastolic Qualified Code(s): I50.33 - Acute on chronic diastolic (congestive) heart failure (3) Atrial fibrillation with RVR Priority: Primary Status: Acute (4) COPD (chronic obstructive pulmonary disease) Priority: Secondary Status: Acute Qualifiers: COPD type: unspecified COPD Qualified Code(s): J44.9 - Chronic obstructive pulmonary disease, unspecified (5) Tobacco abuse Priority: Secondary Status: Acute - Discharge Medications Prescriptions: Metoprolol XL (24 HR) Succ [Toprol Xl] 25 mg PO DAILY #30 tab.er.24h Rivaroxaban [Xarelto] 20 mg PO 1700 #30 tablet Home Medications: Albuterol Sulfate [Ventolin Hfa] 2 inh IH Q4H PRN 05/02/16 [History] Cetirizine HCl [Zyrtec] 10 mg PO DAILY 05/02/16 [History] Cyclobenzaprine [Flexeril] 10 mg PO HS 05/02/16 [History] Gabapentin [Neurontin] 300 mg PO HS 05/02/16 [History] HYDROcodone/Acet 5/325 mg [[place] 5-325 mg] 1 tab PO BID PRN 05/02/16 [History] Omeprazole 40 mg PO DAILY 05/02/16 [History] Albuterol Neb [Proventil Neb] 2.5 mg IH Q4HR 08/02/17 [History] Budesonide/Formoterol 160/4.5 [Symbicort 160/4.5] 2 puff IH BIDR 08/02/17 [ History] Pravastatin Sodium [Pravachol] 40 mg PO HS 08/02/17 [History] Metoprolol XL (24 HR) Succ [Toprol Xl] 25 mg PO DAILY #30 tab.er.24h 08/04/17 [ Rx] Rivaroxaban [Xarelto] 20 mg PO 1700 #30 tablet 08/04/17 [Rx] Allergies/Adverse Reactions: 3 Allergy/AdvReac Type Severity Reaction Status Date / Time No Known Allergies Allergy Verified 08/02/17 09:18 Procedures/tests Complete & Pending: Procedures Performed prior 72 hours Category Date Time Status ECG 12 lead ECG [ECG] Routine Y 08/03/17 14:44 Completed EKG [ECG 12 lead ECG] [ECG] Stat Y 08/03/17 13:02 Completed EV echocardiogram Routine Y 08/03/17 16:09 Ordered EV akhil guided cardioversion Routine Y 08/03/17 11:25 Completed Date of admission: 08/03/17 08:54 Primary care physician: Jr Melo DO - Patient Status Disposition: Home, Self-Care Overall status at discharge: patient is progressing back to baseline - Discharge Instructions Follow Up With: Shasha Manning CNP [Advanced Practice Nurse] - 08/14/17 9:30 am Houston Franklin MD [Partnered Physician] - (Office will call you at home with a follow up appointment) - Diet and Activity Activity: increase activity as tolerated Diet: low salt diet Hospital course: Mr. Ahmadi is a 62 year old male with a relevant past medical history of PAF, MVP, asthma, COPD. Patient presented to [facility] after being seen by his primary booking officer, , and noted to be in atrial fibrillation with RVR. Initial workup also showed some pulmonary edema. He required 2 L of oxygen via nasal cannula initially. I gave him appointment as of IV Lasix and I was able to get him off oxygen. He was seen by cardiology and was initially started on amiodarone drip. He continued to be in atrial fibrillation. He eventually underwent DCCV which was successful and the patient remained in sinus after that for a day. He was discharged with follow-up with cardiology. He was already on anticoagulation with Xarelto. Of note the patient was taken metoprolol succinate 150 mg daily. Cardiology weaned that down to 25 mg daily which seems to have worked for him while he was here. This is because he is being discharged on. He was stable for discharge on 08/04/2017 with follow-up with cardiology and his PCP. - Time Spent with Patient Total time spent providing and/or coordinating discharge services: Greater than 30 minutes - Constitutional Vitals: Temp Pulse Resp BP Pulse Ox 98.3 F 88 16 119/88 94 08/04/17 07:44 08/04/17 07:44 08/04/17 08:26 08/04/17 07:44 08/04/17 08:26 General appearance: Present: A&O X 3 Exam: GEN: NAD CVS: Irregular. Tachycardic. S1, S2, No m/r/g RESP: Crackles at the bases ABD: Soft, NT, ND, +BS EXT: No edema. 2+ DP. No rashes NEURO: Nonfocal
[2017-08-04 11:35] VITALS: BP 132/88
--- NOTE | 2017-08-04 13:34 | Cardiology Progress Note ---
Date of Encounter: 08/04/17 Time of Encounter: 13:30 Assessment and Plan (1) Atrial fibrillation with RVR Current Visit: Yes Status: Acute Per cardiology: -Admitted with a.fib RVR from primary drop wire aligner office. -Recently treated for pneumonia at outside facility, -Chads 2vasc 0. -K, Mg, TSH within normal limits. S/p KIMBERLEY/DCCV. Currently NSR. Amiodarone stopped. Continue toprol. WIll require 4 -6 weeks of AC after DCCV. Restarted on xarelto. Patient should be on 20 mg daily. (2) Mitral regurgitation Current Visit: Yes Status: Acute Mild to moderate MR seen on TTE. Possible flail leaflet seen on KIMBERLEY while in afib. Known MR and MVP since 2012 per patient. Follows with Dr. Franklin. Repeat TTE was recommended while patient is in normal heart rhythm. TTE pending. Out-patient f/u will be scheduled in the cardiology office. Qualifiers: Cardiac valve disease etiology: etiology unspecified Qualified Code(s): I34.0 - Nonrheumatic mitral (valve) insufficiency (3) Mitral valve prolapse Current Visit: Yes Status: Acute Per cadiology: -KNown MVP . -TTE 08/2016 with LVEF 55%, moderate diastolic dysfunction, bileaflet mitral valve prolapse, mild NJ, no segmental wall motion abnormalities. - TTE this admission did not visualize MVP. Re-peat TTe pending. Discussion w patient/family: The assessment and plan as outlined above was discussed with the patient and/or family members who expressed understanding and agreement. All questions were answered. Thank you for involving us in the care of your patient. Please call with any questions. Subjective Principal diagnosis: afib Interval history: No new complaints. Seen in echo lab. Objective Vital Signs, Last 4 Hours Temp Pulse Resp BP Pulse Ox 08/04/17 11:32 98.4 F 96 16 132/88 98 General: Conversant, No Apparent Distress HEENT: Atraumatic, Normocephaly, Mucus Membranes Moist Neck: No JVD, Normal carotid pulses Cardiac: Reg Rate and Rhythm, Normal S1 and S2, No Murmur Lungs: Normal Breath Sounds, No Wheeze, Rales, Rhonchi Neuro: Alert and responsive, No focal deficits noted Abdomen: Soft, Non-Tender Skin: No rashes noted on visualized skin Musculoskeletal: No Chest Wall Tenderness Extremities: No Clubbing, No Cyanosis, No Edema, Normal Pulses Results 08/04/17 06:12 08/04/17 06:12 Lab Results 08/04/17 08/04/17 06:12 06:12 WBC 8.2 Hgb 12.3 L Hct 37.4 L Plt Count 187 Sodium 141 Potassium 3.8 Chloride 110 H Carbon Dioxide 26 BUN 15 Creatinine 0.79 Glucose 105 Calcium 8.8 - Imaging and Cardiology Echo: report reviewed Consult Discharge Plan - Plan Referrals: Shasha Manning CNP [Advanced Practice Nurse] - 08/14/17 9:30 am Houston Franklin MD [Partnered Physician] - (Office will call you at home with a follow up appointment) Prescriptions: Metoprolol XL (24 HR) Succ [Toprol Xl] 25 mg PO DAILY #30 tab.er.24h Rivaroxaban [Xarelto] 20 mg PO 1700 #30 tablet
--- NOTE | 2017-08-04 14:21 | Electrocardiograph Report ---
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
--- NOTE | 2017-08-04 15:41 | Event Note ---
Date of Encounter: 08/04/17 Time of Encounter: 15:40 - Cardiology Event Note Reviewed TTE findings with Dr. Wisam Gutierrez. Patient okay for discharge from cardiology standpoint. Follow-up with Dr. Franklin as scheduled. Cardiology will sign-off. Impressions Echocardiogram 08/04/17 07:00 Impressions: LVEF 60%. Normal LV chamber size, wall thickness and function. Moderate left ventricular diastolic dysfunction. Normal right ventricular structure and function. Severely dilated left atrium. Posterior mitral valve leaflets prolapse noted. In the apical 4-chamber view, there is a small mobile echodensity suggestive of partial flail or ruptured chordae tendineae Mild-moderate mitral regurgitation, which was eccentric. Severity of MR could be underestimated. Mild tricuspid regurgitation. Moderate pulmonary hypertension. Estimated RVSP is 52 mmHg. Left Ventricular Wall Motion: Rest Echo Findings All wall segments showed normal motion. Findings: Study Quality * Technically adequate exam. ECG Findings * Normal sinus rhythm. Left Ventricle * LVEF 60%. * Normal LV chamber size, wall thickness and function. * Moderate left ventricular diastolic dysfunction. Right Ventricle * Normal right ventricular structure and function. Left Atrium * Severely dilated left atrium. Right Atrium * Moderately dilated right atrium. Interatrial Septum * Interatrial septum not well evaluated. Aortic Valve * Trileaflet aortic valve with normal function. * No aortic regurgitation. * No aortic stenosis. Mitral Valve * Posterior mitral valve leaflets prolapse noted. In the apical 4-chamber view, there is a small mobile echodensity suggestive of partial flail or ruptured chordae tendineae * No mitral stenosis. * Mild-moderate mitral regurgitation, which was eccentric. Severity of MR could be underestimated. Tricuspid Valve * Normal tricuspid valve structure. * Mild tricuspid regurgitation. * Moderate pulmonary hypertension. * Estimated RVSP is 52 mmHg. * Estimated RA pressure is 5 mmHg. Pulmonic Valve * Normal pulmonic valve structure and function. * No pulmonic regurgitation. Aorta * Normally sized aortic root. Pericardium * The pericardium appears normal. IVC * Normal IVC dimensions and inspiratory collapse. Pulmonary Artery * Normal visualized portions of the main pulmonary artery.
[2017-08-04] MEDS: *HR* Rivaroxaban 10 MG TABLET PO SCH (15:53)
--- NOTE | 2017-08-04 17:44 | Electrocardiograph Report ---
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
== END 2017-08-04 16:04 | disposition home or self-care (01) | DRG 308 ==
LOC: EMEROO 12:51 → 2ANU 12:51 → 2NNU 23:00
PROVIDERS: ADMIT Family Medicine; ATTEND Family Medicine

== ENCOUNTER 2017-09-21 14:11 | Inpatient (IN) ==
[2017-09-21] MEDS ORDERED: Amiodarone Premix 150 MG/100 ML BAG IVPB ONE (14:34)
[2017-09-21] MEDS ORDERED: Amiodarone Premix 360 MG/200 ML BAG IVC ONE ×2 (14:34→21:41)
--- NOTE | 2017-09-21 14:38 | Emergency Department Note ---
Disposition Clinical Impression: A-fib Qualifiers: Atrial fibrillation type: paroxysmal Qualified Code(s): I48.0 - Paroxysmal atrial fibrillation CHF (congestive heart failure) Qualifiers: Heart failure type: unspecified Heart failure chronicity: chronic Qualified Code(s): I50.9 - Heart failure, unspecified Disposition: Admitted As Inpatient Condition: Fair Forms: ED Satisfaction Letter Time of Disposition: 16:26 General Adult HPI - General Chief complaint: ED Shortness of Breath/Dyspnea Stated complaint: AFIB Time Seen by Provider: 09/21/17 14:18 Source: patient Limitations: no limitations Nursing Notes Reviewed: Yes Vital Signs Reviewed: Yes - History of Present Illness HPI Narrative: Patient presents to the ED with chief complaint shortness of breath. 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 He has had some dyspnea with exertion with 2 weeks. He was up all night coughing last night productive of yellow sputum. He has a history of atrial fibrillation with a recent cardioversion. He is currently on metoprolol and Xarelto for that. Denies chest pain. States he feels swollen but he does not see any swelling in his ankles. History of CHF as well. Pain Scale: 7 - Related Data Home Medications Medication Instructions Recorded Confirmed Albuterol Sulfate [Ventolin Hfa] 2 inh IH Q4H PRN 05/02/16 08/02/17 Cetirizine HCl [Zyrtec] 10 mg PO DAILY 05/02/16 08/02/17 Cyclobenzaprine [Flexeril] 10 mg PO HS 05/02/16 08/02/17 Gabapentin [Neurontin] 300 mg PO HS 05/02/16 08/02/17 HYDROcodone/Acet 5/325 mg [[place] 1 tab PO BID PRN 05/02/16 08/02/17 5-325 mg] Omeprazole 40 mg PO DAILY 05/02/16 08/02/17 Albuterol Neb [Proventil Neb] 2.5 mg IH Q4HR 08/02/17 08/02/17 Budesonide/Formoterol 160/4.5 2 puff IH BIDR 08/02/17 08/02/17 [Symbicort 160/4.5] Pravastatin Sodium [Pravachol] 40 mg PO HS 08/02/17 08/02/17 Previous Rx's Medication Instructions Recorded Metoprolol XL (24 HR) Succ [Toprol 25 mg PO DAILY #30 tab.er.24h 08/04/17 Xl] Rivaroxaban [Xarelto] 20 mg PO 1700 #30 tablet 08/04/17 Allergies Allergy/AdvReac Type Severity Reaction Status Date / Time No Known Allergies Allergy Verified 09/21/17 14:17 All systems ED: reviewed and negative except as stated. Constitutional: Denies: fever Cardiovascular: Denies: chest pain Respiratory: Reports: dyspnea. Denies: wheezes Gastrointestinal: Denies: vomiting, diarrhea Past Medical History - Past Medical History Attestation: Yes The following information was validated with the patient. Source: patient Medical history: Reports: arthritis, atrial fibrillation, COPD, hyperlipidemia, hypertension, myocardial infarction Surgical history: Reports: orthopedic, other Psychiatric history: Reports: no psych history - Social History Smoking Status: Current every day smoker Smokeless Tobacco Status: No Alcohol use: Reports: none Drug use: Reports: none Physical Exam Patient awake and alert sitting up in bed in no acute distress. Lung sounds diminished at bases. No pedal edema. Heart tachycardia and irregularly irregular. - General Limitations: no limitations General appearance: alert, in no apparent distress - Head Head exam: atraumatic, normocephalic - Eye Eye exam: Present: normal appearance - ENT ENT exam: normal exam - Neck Neck exam: Present: normal inspection - Chest Chest inspection: Present: normal inspection - Cardiovascular Cardiovascular exam: Present: tachycardia, irregular rhythm - Abdominal Exam Abdominal exam: Present: soft, Non-Tender - Neurological Exam Neurological exam: Present: alert, oriented X3 - Psychiatric Psychiatric exam: Present: normal affect - Skin Skin exam: Present: warm, dry, intact Course Course Narrative: Patient is in no acute distress. He has had trouble with Cardizem dropping his blood pressure in the past. We will start him on an amiodarone drip. Likely admission. He is anticoagulated on Xarelto. - Consultations Consultation #1: Dr. Casey accepts for admission. Time: 16:25 Vital Signs Temperature 97.6 F 09/21/17 14:14 Pulse Rate 151 09/21/17 14:14 Respiratory Rate 20 09/21/17 14:14 Blood Pressure 119/98 09/21/17 14:14 O2 Sat by Pulse Oximetry 99 09/21/17 14:14 Temperature 97.6 F 09/21/17 14:14 Pulse Rate 123 09/21/17 16:18 Respiratory Rate 18 09/21/17 16:18 Blood Pressure 113/100 09/21/17 16:18 O2 Sat by Pulse Oximetry 94 09/21/17 16:18 Oxygen Delivery Oxygen Delivery Room Air Medical Decision Making - MDM Narrative Medical decision making narrative: Heart rate is improved at this time to the 120s on his amiodarone drip. He is tolerating it well. Chest x-ray shows bilateral pulmonary edema versus infiltrates. He has no fever. I do not believe he has pneumonia. Patient states he pneumonia in August and this does not feel like pneumonia. We will give him Lasix for CHF. He is tolerating amiodarone drip at this time. Admitted to medicine. - Lab Data Lab results reviewed: Yes I reviewed the patient's lab results. Result diagrams: 09/21/17 14:46 09/21/17 14:46 Lab Results 09/21/17 09/21/17 09/21/17 Range/Units 14:46 14:46 14:46 WBC 12.6 H (4.3-11.1) K/mcL RBC 4.19 (4.19-5.50) M/mcL Hgb 13.4 (12.9-16.9) g/dL Hct 41.7 (37.5-50.1) % MCV 99.5 (83.0-100.0) fL MCH 32.0 (28.0-33.3) pg MCHC 32.1 (31.6-35.5) g/dL RDW 13.8 (11.5-14.5) % Plt Count 261 (140-400) K/mcL MPV 9.3 L (9.4-12.4) fL Immature Gran % 0.4 (0-4) % Seg Neutrophils % 73.8 % Lymphocytes % 17.0 % Monocytes % 7.1 % Eosinophils % 1.1 % Basophils % 0.6 % Neutrophils # 9.3 H (1.6-8.9) K/mcL Lymphocytes # 2.1 (0.6-4.6) K/mcL Monocytes # 0.9 (0.0-1.3) K/mcL Eosinophils # 0.1 (0.0-0.6) K/mcL Basophils # 0.1 (0.0-0.2) K/mcL PT 15.1 H (9.4-12.1) Seconds INR 1.4 APTT 34.9 (26.0-36.0) Seconds Sodium 141 (136-145) mEq/L Potassium 4.0 (3.5-5.1) mEq/L Chloride 109 H (98-107) mEq/L Carbon Dioxide 24 (23-29) mEq/L BUN 16 (8-23) mg/dL Creatinine 0.85 (0.70-1.30) mg/dL Est GFR ( Amer) > 60 (> 60) Est GFR (Non-Af Amer) > 60 (> 60) BUN/Creatinine Ratio 19 (6-26) Glucose 106 H (70-105) mg/dL Calculated Osmolality 294 (280-300) Calcium 9.5 (8.6-10.3) mg/dL Magnesium 2.1 (1.6-2.6) mg/dL Troponin I < 0.03 (< 0.04) ng/mL TSH 1.269 (0.340-5.600) mcIU/mL - Radiology Data Radiology results reviewed: Yes I reviewed the patient's radiology results. Chest X-Ray 09/21/17 14:35 IMPRESSION: Bibasilar infiltrates, either due to pneumonia or edema. D/ / Robert Baum MD / Robert Baum MD Interpreting Provider: Robert Baum MD - EKG Data EKG #1 EKG attestation: Yes I reviewed and interpreted this EKG. EKG results narrative: Afebrile 151. Septal Q-wave. Normal ST segments. Normal axis. QT 271 with QTC 357. Unchanged from EKG September 21. Critical Care Time Critical Care Time: Yes Total Critical Care Time: 40 Attestation: Critical care performed: Time is exclusive of separately billable procedures. Time includes: direct patient care, patient reassessment, coordination of patient care, interpretation of data (laboratory data, radiology data, and respiratory data), review of patient's medical records, medical consultation and documentation of patient care. Procedures included in critical care time: Procedures excluded from critical care time:
[2017-09-21 14:59] LABS: Basophils # 0.1 K/mcL (0.0-0.2); Basophils % 0.6 %; Eosinophils # 0.1 K/mcL (0.0-0.6); Eosinophils % 1.1 %; Hematocrit 41.7 % (37.5-50.1); Hemoglobin 13.4 g/dL (12.9-16.9); Immature Granulocytes % 0.4 % (0-4); Lymphocytes # 2.1 K/mcL (0.6-4.6); Mean Corpuscular HGB Conc 32.1 g/dL (31.6-35.5); Mean Corpuscular Volume 99.5 fL (83.0-100.0); Mean Platelet Volume 9.3 fL (9.4-12.4); Monocytes # 0.9 K/mcL (0.0-1.3); Monocytes % 7.1 %; Neutrophils # 9.3 K/mcL (1.6-8.9); Platelet Count 261 K/mcL (140-400); Red Blood Count 4.19 M/mcL (4.19-5.50); Red Cell Distribution Width 13.8 % (11.5-14.5); Segmented Neutrophils % 73.8 %
[2017-09-21 15:08] LABS: INR 1.4; Prothrombin Time 15.1 Seconds (9.4-12.1)
[2017-09-21 15:11] LABS: Activated Partial Thrombo Time 34.9 Seconds (26.0-36.0)
[2017-09-21 15:23] LABS: BUN/Creatinine Ratio 19 (6-26); Blood Urea Nitrogen 16 mg/dL (8-23); Calcium 9.5 mg/dL (8.6-10.3); Carbon Dioxide 24 mEq/L (23-29); Chloride 109 mEq/L (98-107); Glucose 106 mg/dL (70-105); Magnesium 2.1 mg/dL (1.6-2.6); Osmolality,Calculated 294 (280-300); Sodium 141 mEq/L (136-145); eGFR For African Americans > 60 (> 60); eGFR For Non-African Americans > 60 (> 60)
[2017-09-21 15:24] LABS: Troponin I < 0.03 ng/mL (< 0.04)
[2017-09-21 15:37] LABS: Thyroid Stimulating Hormone 1.269 mcIU/mL (0.340-5.600)
[2017-09-21] MEDS ORDERED: Furosemide 40 MG/4 ML VIAL IVP ONE (16:16)
[2017-09-21] MEDS ORDERED: Furosemide 20 MG/2 ML VIAL IVP SCH (17:00)
[2017-09-21] MEDS ORDERED: Albuterol 2.5 MG/3 ML NEBULIZER IH PRN (17:00)
[2017-09-21] MEDS ORDERED: Naloxone 0.4 MG/ML INJ IVP PRN (17:08)
--- NOTE | 2017-09-21 17:14 | Internal Med History&Physical ---
<Adrián Brewer J - Last Filed: 09/21/17 17:22> Date of Encounter: 09/21/17 Time of Encounter: 17:11 Assessment and Plan (1) Atrial fibrillation with RVR Current visit: Yes Status: Acute Patient presents today with dyspnea, palpitations and tachycardia. Was found to be in A. fib rapid ventricular response while in the ED; likely valvular a- fib d/t mitral valve prolapse. He does have a history of A. fib for which he is taking Xarelto. He was recently here in August 2017 with A. fib RVR and required cardioversion. At that time he was unable to tolerate Cardizem drip due to hypotension. The atrial fibrillation was managed with amiodarone -Amiodarone drip per protocol -Continuous telemetry -Resume beta roland at home dose -Trend troponins (2) CHF exacerbation Current visit: Yes Status: Acute Presents today with dyspnea, orthopnea appears optimal nocturnal dyspnea, as well as cough while lying flat. Chest x-ray shows bibasilar infiltrates either due to pneumonia or edema. Echocardiogram 08/20 shows moderate diastolic dysfunction, moderate pulmonary hypertension and mitral valve regurgitation as well as mitral valve prolapse. I suspect that it is congestive heart failure due to his clinical presentation and history. However, he does have slight leukocytosis at 12.6 -Portable CXR in the morning -Continue diuresis, Lasix 40 mg IV push twice a day -Respiratory support per nasal cannula when necessary -Continuous telemetry Qualifiers: Qualified Code(s): I50.33 - Acute on chronic diastolic (congestive) heart failure (3) COPD (chronic obstructive pulmonary disease) Current visit: Yes Status: Acute Stable, resume bronchodilators Qualifiers: COPD type: unspecified COPD Qualified Code(s): J44.9 - Chronic obstructive pulmonary disease, unspecified (4) Mitral valve prolapse Current visit: Yes Status: Chronic (5) Mitral regurgitation Current visit: Yes Status: Chronic Qualifiers: Cardiac valve disease etiology: etiology unspecified Qualified Code(s): I34.0 - Nonrheumatic mitral (valve) insufficiency (6) Tobacco abuse Current visit: Yes Status: Acute 1 PPD smoker. Discussed smoking cessation (7) DVT prophylaxis Current visit: Yes Status: Acute Continue Xarelto Internal Medicine - H&P: HPI Chief complaint: SOB, A-fib RVR Admitted From: Home Plans for Post Hospital Care: Home History of present illness: Mr. Ahmadi is a 62 year old male with a PMH ofarthritis, atrial fibrillation for which she is taking Xarelto, COPD, hyperlipidemia, hypertension, and myocardial infarction. He presents to [facility] ED today with a chief complaint of shortness of breath, tachycardia and palpitations. He reports that he has been having increased shortness of breath for 2 weeks. This dyspnea is exacerbated by exertion. Additionally, he is reporting a weight gain Of Approximately 10 Pounds, orthopnea and paroxysmal nocturnal dyspnea. He reports that he is taking metoprolol and Xarelto for his atrial fibrillation. He was recently here in August 2017 with an episode of A. fib RVR. During that time he required cardioversion. He denies any fever, chills, or chest pain. TSH in the ED unremarkable, CXR reveals bibasilar infiltrates. Past Med Surg Social Fam HX - Past Medical History Medical history: arthritis, atrial fibrillation, COPD, hyperlipidemia, hypertension, myocardial infarction Psychiatric history: no psych history - Past Surgical History Surgical History: orthopedic, other - Social History Smoking Status: Current every day smoker Smokeless Tobacco Status: No Alcohol use: none Drug use: none - Family History Mother Hx Family Cardiac Disorders: Yes Father Hx Family Cancer: Yes Brother Hx Family Respiratory Disorders: Yes (.) Internal Medicine - H&P: Meds Albuterol Sulfate [Ventolin Hfa] 2 puff IH Q4H PRN 05/02/16 [History] Cetirizine HCl [Zyrtec] 10 mg PO DAILY 05/02/16 [History] Cyclobenzaprine [Flexeril] 10 mg PO BID 05/02/16 [History] Gabapentin [Neurontin] 300 mg PO TID 05/02/16 [History] HYDROcodone/Acet 5/325 mg [[place] 5-325 mg] 1 tab PO TID PRN 05/02/16 [History] Albuterol Neb [Proventil Neb] 2.5 mg IH Q4HR PRN 08/02/17 [History] Budesonide/Formoterol 160/4.5 [Symbicort 160/4.5] 2 puff IH BIDR 08/02/17 [ History] Pravastatin Sodium [Pravachol] 40 mg PO HS 08/02/17 [History] Metoprolol Tartrate [Metoprolol Tartrate] 50 mg PO BID 09/21/17 [History] Omeprazole [PriLOSEC] 40 mg PO DAILY 09/21/17 [History] Rivaroxaban [Xarelto] 20 mg PO QPM 09/21/17 [History] 3 Allergy/AdvReac Type Severity Reaction Status Date / Time No Known Allergies Allergy Verified 09/21/17 14:17 All Systems PM: A 10-system review of systems was performed and is negative for pertinent findings except as documented above in the HPI. Review of systems: REVIEW OF SYSTEMS GENERAL: Negative for any nausea, vomiting, fevers, chills, or weight loss. NEUROLOGIC: Negative for any blurry vision, blind spots, double vision, facial asymmetry, dysphagia, dysarthria, hemiparesis, hemisensory deficits, vertigo, ataxia. HEENT: Negative for any head trauma, neck trauma, neck stiffness, photophobia, phonophobia, sinusitis, rhinitis. CARDIAC: Negative for any chest pain, paroxysmal nocturnal dyspnea, peripheral edema. Positive palpitations, tachycardia, shortness of breath and BLE swelling as well as a 10 pound weight gain. PULMONARY: Negative, wheezing, COPD, or TB exposure. Positive for shortness of breath GASTROINTESTINAL: Negative for any abdominal pain, nausea, vomiting, bright red blood per rectum, melena. GENITOURINARY: Negative for any dysuria, hematuria, incontinence. INTEGUMENTARY: Negative for any rashes, cuts, insect bites. RHEUMATOLOGIC: Negative for any joint pains, photosensitive rashes, history of vasculitis or kidney problems. HEMATOLOGIC: Negative for any abnormal bruising, frequent infections or bleeding. - Constitutional Vitals: Temp Pulse Resp BP Pulse Ox 97.6 F 123 18 113/100 94 09/21/17 14:14 09/21/17 16:18 09/21/17 16:18 09/21/17 16:18 09/21/17 16:18 General appearance: Present: cooperative, mild distress, A&O X 3, answers questions appropriately - Head Head exam: Present: atraumatic, normocephalic - Eye Pupils: Present: PERRL - Respiratory Respiratory exam: Present: decreased breath sounds, CTAB. Absent: accessory muscle use, rales, rhonchi, wheezes - Cardiovascular Cardiovascular exam: Present: irregular rhythm, tachycardia. Absent: diastolic murmur, gallop, rubs, systolic murmur Internal Med - H&P Results - Labs CBC & Chem 7: 09/21/17 14:46 09/21/17 14:46 - EKG Data -: EKG Interpreted by Myself - EKG Data EKG comments: Atrial fibrillation with rapid ventricular response rate of 150s 09/21/17 17:23 - Impressions Impressions Chest X-Ray 09/21/17 14:35 IMPRESSION: Bibasilar infiltrates, either due to pneumonia or edema. D/ / Robert Baum MD / Robert Baum MD Interpreting Provider: Robert Baum MD <Zohra Casey - Last Filed: 09/21/17 17:52> Date of Encounter: 09/21/17 Time of Encounter: 16:30 Internal Medicine - H&P: HPI History of present illness: Mr. Ahmadi is a 62 year old male All Systems PM: A 10-system review of systems was performed and is negative for pertinent findings except as documented above in the HPI. - Constitutional Vitals: Temp Pulse Resp BP Pulse Ox 97.6 F 123 18 111/86 94 09/21/17 14:14 09/21/17 16:18 09/21/17 17:12 09/21/17 17:12 09/21/17 16:18 Internal Med - H&P Results - Labs CBC & Chem 7: 09/21/17 14:46 09/21/17 14:46 - Attending Attestation I examined this patient and my medical decision-making was reviewed with the Nurse Practitioner, Adrián Brewer. I agree with the documented findings, disposition and treatment plan as described with any changes as documented below. 62-year-old male patient with history of atrial fibrillation, COPD, CHF presenting with A. fib with RVR. 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 He was therefore sent to the ER. Presently complains of some shortness of breath especially with exertion. He does have palpitations. No dizziness or lightheadedness. On exam, patient is awake and alert. Has irregularly irregular tachycardia. Bilateral rhonchi. Bilateral pedal edema. EKG shows rapid A. fib. Chest x-ray does not show any acute infiltrate but increased congestive changes. Atrial fibrillation-paroxysmal with RVR: Valvular A. fib. On anticoagulation with Xarelto. Has previously had hypotension with Cardizem and was therefore started on amiodarone. We will continue amiodarone. Consult cardiology. Monitor heart rate. High risk for complications due to use of amiodarone. Diastolic congestive heart failure: Acute on chronic. Will treat with IV Lasix. Monitor input and output. Daily weights. COPD and pulmonary hypertension: O2 supplementation as needed. We will use bronchodilators as needed. Monitor heart rate closely as they can exacerbate his atrial fibrillation. Mitral valve prolapse and regurgitation: Follow up with cardiology recommendations. Continue antihypertensive regimen. Essential hypertension: Continue metoprolol. Monitor blood pressure. DVT prophylaxis: Continue Xarelto.
[2017-09-21] MEDS ORDERED: *HR* Rivaroxaban 10 MG TABLET PO SCH (17:15)
[2017-09-21] MEDS: *HR* HYDROcodone/Acet 5/325 mg TABLET PO PRN (18:10)
[2017-09-21] MEDS: Budesonide/Formoterol 160/4.5 MDI IH SCH (19:56)
[2017-09-21] MEDS: Furosemide 20 MG/2 ML VIAL IVP SCH (20:30)
[2017-09-21] MEDS: Gabapentin 300 MG CAPSULE PO SCH (20:31)
[2017-09-21] MEDS: Amiodarone Premix 360 MG/200 ML BAG IVC SCH (21:44)
[2017-09-22 01:02] LABS: Basophils # 0.1 K/mcL (0.0-0.2); Basophils % 0.7 %; Eosinophils # 0.2 K/mcL (0.0-0.6); Eosinophils % 1.8 %; Hematocrit 39.8 % (37.5-50.1); Hemoglobin 13.2 g/dL (12.9-16.9); Immature Granulocytes % 0.4 % (0-4); Lymphocytes # 2.6 K/mcL (0.6-4.6); Lymphocytes % 22.7 %; Mean Corpuscular HGB Conc 33.2 g/dL (31.6-35.5); Mean Corpuscular Hemoglobin 31.7 pg (28.0-33.3); Mean Corpuscular Volume 95.7 fL (83.0-100.0); Mean Platelet Volume 9.1 fL (9.4-12.4); Monocytes % 8.9 %; Neutrophils # 7.5 K/mcL (1.6-8.9); Platelet Count 272 K/mcL (140-400); Red Blood Count 4.16 M/mcL (4.19-5.50); Red Cell Distribution Width 13.7 % (11.5-14.5); Segmented Neutrophils % 65.5 %
[2017-09-22 01:22] LABS: BUN/Creatinine Ratio 16 (6-26); Blood Urea Nitrogen 14 mg/dL (8-23); Calcium 9.3 mg/dL (8.6-10.3); Carbon Dioxide 25 mEq/L (23-29); Chloride 107 mEq/L (98-107); Glucose 109 mg/dL (70-105); Osmolality,Calculated 293 (280-300); Potassium 3.7 mEq/L (3.5-5.1); Sodium 141 mEq/L (136-145); eGFR For African Americans > 60 (> 60); eGFR For Non-African Americans > 60 (> 60)
[2017-09-22] MEDS: Gabapentin 300 MG CAPSULE PO SCH ×3 (07:49→19:52)
[2017-09-22] MEDS: Loratadine 10 MG TABLET PO SCH (07:49)
[2017-09-22] MEDS: Furosemide 20 MG/2 ML VIAL IVP SCH (07:50)
[2017-09-22] MEDS: *HR* HYDROcodone/Acet 5/325 mg TABLET PO PRN ×2 (07:55→23:43)
[2017-09-22] MEDS: Amiodarone Premix 360 MG/200 ML BAG IVC SCH ×2 (07:56→19:52)
--- NOTE | 2017-09-22 10:27 | Internal Med Progress Note ---
<Joel Tovar - Last Filed: 09/22/17 10:25> Date of Encounter: 09/22/17 Time of Encounter: 10:25 - Assessment and plan (1) Atrial fibrillation with RVR Current Visit: Yes Status: Acute Assessment and plan: Currently patient is on amiodarone infusion. He continues to be in A. fib with rate above 120s. He is also on metoprolol 50 g twice a day. Patient is anticoagulation with xeralto. cardiology consulted appreciate recommendations (2) CHF exacerbation Current Visit: Yes Status: Acute Assessment and plan: Secondary to A. fib RVR. Echocardiogram in 08/04/2017 shows LVEF of 60% with normal left ventricular chamber size with moderate left ventricular diastolic dysfunction with severe dilated left atrium, mitral valve prolapse, moderate mitral valve regurgitation , moderate pulmonary hypertension. chest x-ray shows venous congestion/fluid overload. Total output since admission is 4815 mL. continue lasix. Continue diuresis. Qualifiers: Qualified Code(s): I50.33 - Acute on chronic diastolic (congestive) heart failure (3) COPD (chronic obstructive pulmonary disease) Current Visit: Yes Status: Chronic Assessment and plan: Not an exacerbation. We will discontinue when necessary albuterol as this may make Patient tachycardic. We will start when necessary ipratropium nebulizers Continue home Symbicort Qualifiers: COPD type: unspecified COPD Qualified Code(s): J44.9 - Chronic obstructive pulmonary disease, unspecified (4) DVT prophylaxis Current Visit: Yes Status: Acute Assessment and plan: Xeralto (5) Mitral valve prolapse Current Visit: Yes Status: Chronic Assessment and plan: Patient has a history of mitral valve prolapse and is followed by cardiology Follow-up with cardiology outpatient. (6) Tobacco abuse Current Visit: Yes Status: Acute Assessment and plan: Patient educated on benefits of smoking cessation. (7) Mitral regurgitation Current Visit: Yes Status: Chronic Assessment and plan: Follow-up with cardiology outpatient. Qualifiers: Cardiac valve disease etiology: etiology unspecified Qualified Code(s): I34.0 - Nonrheumatic mitral (valve) insufficiency - Subjective Interval history: Patient reports his shortness of breath has improved considerably. He denies any headache, chest pain, palpitations, shortness of breath, cough, abdominal pain, nausea, vomiting, diarrhea, lower extremity swelling today. - Constitutional Vitals: Temp Pulse Resp BP Pulse Ox 98 F 130 17 113/88 97 09/22/17 07:35 09/22/17 08:00 09/22/17 07:35 09/22/17 07:35 09/22/17 07:35 General appearance: Present: cooperative, mild distress, A&O X 3, answers questions appropriately - Other Additional findings: General: Pleasant without distress Heart: Irregularly irregular rhythm, tachycardic Lungs: Mild bibasilar crackles Abdomen: Soft nontender, nondistended positive bowel sounds Skin: warm and dry Extremities: Absent pedal edema, Neuro: Alert oriented 3 Vascular: Pedal and radial pulses 2 out of 4 Internal Medicine: Result - Labs CBC & Chem 7: 09/22/17 00:48 09/22/17 00:48 Labs: Short CBC 09/22/17 Range/Units 00:48 WBC 11.4 H (4.3-11.1) K/mcL Hgb 13.2 (12.9-16.9) g/dL Hct 39.8 (37.5-50.1) % Plt Count 272 (140-400) K/mcL Neutrophils # 7.5 (1.6-8.9) K/mcL BMP 09/22/17 00:48 Sodium 141 Potassium 3.7 Chloride 107 Carbon Dioxide 25 BUN 14 Creatinine 0.88 Glucose 109 H Calcium 9.3 Cardiac Enzymes 09/21/17 09/22/17 Range/Units 18:57 00:48 Troponin I < 0.03 < 0.03 (< 0.04) ng/mL - ABG Interpretation ABG results: PT/INR, D-dimer PT 15.1 Seconds (9.4-12.1) H 09/21/17 14:46 - Impressions Impressions Chest X-Ray 09/22/17 09:00 IMPRESSION: Findings most consistent with bilateral pneumonia, slightly increased since the prior. Radiographic follow-up to resolution is suggested. D/ / 09/22/2017 07:59:53 Henry Moscoso MD / sarai Interpreting Provider: Henry Moscoso MD Consult Discharge Plan - Plan Referrals: Hansel Villatoro [Primary Care Provider] - 09/27/17 8:30 am <Jeffrey Johnson - Last Filed: 09/22/17 17:29> Date of Encounter: 09/22/17 - Assessment and plan (1) CHF (congestive heart failure) Current Visit: Yes Status: Acute Qualifiers: Heart failure type: diastolic Heart failure chronicity: acute on chronic Qualified Code(s): I50.33 - Acute on chronic diastolic (congestive) heart failure (2) A-fib Current Visit: Yes Status: Acute Qualifiers: Atrial fibrillation type: paroxysmal Qualified Code(s): I48.0 - Paroxysmal atrial fibrillation (3) Tobacco abuse Current Visit: Yes Status: Acute (4) COPD (chronic obstructive pulmonary disease) Current Visit: Yes Status: Chronic Qualifiers: COPD type: unspecified COPD Qualified Code(s): J44.9 - Chronic obstructive pulmonary disease, unspecified (5) Mitral regurgitation Current Visit: Yes Status: Chronic Qualifiers: Cardiac valve disease etiology: etiology unspecified Qualified Code(s): I34.0 - Nonrheumatic mitral (valve) insufficiency (6) Mitral valve prolapse Current Visit: Yes Status: Chronic - Constitutional Vitals: Temp Pulse Resp BP Pulse Ox 97.3 F L 124 16 113/82 97 09/22/17 11:23 09/22/17 17:00 09/22/17 11:23 09/22/17 17:00 09/22/17 11:23 Internal Medicine: Result - Labs CBC & Chem 7: 09/22/17 00:48 09/22/17 00:48 - ABG Interpretation ABG results: PT/INR, D-dimer PT 15.7 Seconds (9.4-12.1) H 09/22/17 15:05 - Attending Attestation I examined this patient and my medical decision-making was reviewed with the Resident Physician on 09/22/17. I agree with the documented findings, disposition and treatment plan as described except to the extent set forth below. Mr Ahmadi is currently admitted for rapid atrial fibrillation. He is on amio drip. He remains moderate to high risk due to potential for worsening clinical status. Mr Ahmadi wants to go out to smoke. No fever. Heart rate still over 110 mostly. On amio drip. No CP or SOB. Exam alert Heart irreg and tachy Lungs diminished Abd soft I/P 1. A fib 2. Tobacco abuse Further diagnoses and plan as above.
[2017-09-22] MEDS ORDERED: Ipratropium Neb 0.5 MG NEBULIZER IH PRN (10:32)
[2017-09-22] MEDS: Budesonide/Formoterol 160/4.5 MDI IH SCH ×2 (10:53→22:36)
--- NOTE | 2017-09-22 12:18 | Cardiology Consult Note ---
Date of Encounter: 09/22/17 Time of Encounter: 11:00 Assessment and Plan (1) Atrial fibrillation with RVR Current Visit: Yes Status: Acute Per cardiology: -Kown history of a.fib -A.fib RVR noted at primary cardiology office. -recent DCCV 08/2017. -On beta roland and amiodarone drip. -HR still tachyacrdic. -ON xarelto for anticoagulation. -Of note, BP marginal 90-100s systolic. -TTE 08/2017 with severely dilated left atrium. -Continue amiodarone drip. Will attempt to uptitrate beta roland as BP will tolerate. (2) Diastolic CHF Current Visit: Yes Status: Acute Per cardiology: -CHest x-ray with bibasilar infiltrates, possibly due to pnuemonia or edema. -TTE 08/2017 with moderate diastolic dysufnction. -Reports orthopnea, increased shortness of breath, edema, and weight gain. -Was give IV lasix. -Net negative 4315ml. -Currently euvlemic on exam. -Reports symptoms resolved. -CHF education reviewed with pateint. -Will switch lasix to po. Qualifiers: Heart failure chronicity: acute Qualified Code(s): I50.31 - Acute diastolic (congestive) heart failure (3) Mitral valve prolapse Current Visit: Yes Status: Chronic Per cardiology: -KNown MVP -TTE 08/2017 with pisterior mitral leaflets prolapse noted, small mobile echodensity suggestive of partial flail or ruptured chordae tendinae. -Mild-moderate MR, eccentricu. May be underestimated. Discussion w patient/family: The assessment and plan as outlined above was discussed with the patient who expressed understanding and agreement. All questions were answered. Thank you for involving us in the care of your patient. Please call with any questions. Discussed and reviewed with . History of Present Illness Consult date: 09/21/16 Requesting physician: Adrián Brewer Consult reason: a.fib RVR Chief complaint: shrotness of breath History of present illness: Mr. Ahmadi is a 62 year old male with a relevant past medical history of a.fib , asthma, COPD, smoking, mitral valve prolapse. Patient presented to [facility] with complaints of increased shortness of breath, orthopnea, edema, weight gain. 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 ECG was done and pateint was noted to be in a.fib RVR. Patient was recommended to come to ER. Patient denies chest pain. Reports edema and shortness of breath are imrpoved today. Denies palpitations or fluttering. Past Med Surg Social Fam HX - Past Medical History Attestation: Yes The following information was validated with the patient. Source: patient, old records reviewed Medical history: arthritis, atrial fibrillation, COPD, hyperlipidemia, hypertension Psychiatric history: no psych history - Past Surgical History Surgical History: orthopedic, other - Social History Smoking Status: Current every day smoker Smokeless Tobacco Status: No Alcohol use: none Drug use: none - Family History Mother Hx Family Cardiac Disorders: Yes Father Hx Family Cancer: Yes Brother Hx Family Respiratory Disorders: Yes (.) Medications and Allergies Albuterol Sulfate [Ventolin Hfa] 2 puff IH Q4H PRN 05/02/16 [History] Cetirizine HCl [Zyrtec] 10 mg PO DAILY 05/02/16 [History] Cyclobenzaprine [Flexeril] 10 mg PO BID 05/02/16 [History] Gabapentin [Neurontin] 300 mg PO TID 05/02/16 [History] HYDROcodone/Acet 5/325 mg [[place] 5-325 mg] 1 tab PO TID PRN 05/02/16 [History] Albuterol Neb [Proventil Neb] 2.5 mg IH Q4HR PRN 08/02/17 [History] Budesonide/Formoterol 160/4.5 [Symbicort 160/4.5] 2 puff IH BIDR 08/02/17 [ History] Pravastatin Sodium [Pravachol] 40 mg PO HS 08/02/17 [History] Metoprolol Tartrate [Metoprolol Tartrate] 50 mg PO BID 09/21/17 [History] Omeprazole [PriLOSEC] 40 mg PO DAILY 09/21/17 [History] Rivaroxaban [Xarelto] 20 mg PO QPM 09/21/17 [History] 3 Allergy/AdvReac Type Severity Reaction Status Date / Time No Known Allergies Allergy Verified 09/21/17 14:17 All Systems Review: The remainder of the systems were reviewed and are negative - Constitutional Constitutional: weight gain - Cardiovascular Cardiovascular: as per HPI, dyspnea on exertion, leg edema, orthopnea Physical Examination Vital Signs, Last 4 Hours Temp Pulse Resp BP Pulse Ox 09/22/17 11:23 97.3 F L 129 16 103/93 97 09/22/17 10:56 16 97 General: Conversant, No Apparent Distress HEENT: Atraumatic, Normocephaly, Mucus Membranes Moist Neck: No JVD, Normal carotid pulses Cardiac: Normal S1 and S2, No Murmur, Other (Irregularly irregular ) Lungs: Normal Breath Sounds, No Wheeze, Rales, Rhonchi Neuro: Alert and responsive, No focal deficits noted Abdomen: Soft, Non-Tender Skin: No rashes noted on visualized skin Musculoskeletal: No Chest Wall Tenderness Extremities: No Clubbing, No Cyanosis, No Edema, Normal Pulses Results 09/22/17 00:48 09/22/17 00:48 Impressions Chest X-Ray 09/21/17 14:35 IMPRESSION: Bibasilar infiltrates, either due to pneumonia or edema. D/ / Robert Baum MD / Robert Baum MD Interpreting Provider: Robert Baum MD Chest X-Ray 09/22/17 09:00 IMPRESSION: Findings most consistent with bilateral pneumonia, slightly increased since the prior. Radiographic follow-up to resolution is suggested. D/ / 09/22/2017 07:59:53 Henry Moscoso MD / sarai Interpreting Provider: Henry Moscoso MD Active Medications Hydrocodone Bitart/Acetaminophen ([place] 5-325 Mg) 1 tab PO Q6HR PRN PRN Reason: Moderate Pain Stop: 03/23/18 17:55 Last Admin: 09/22/17 07:55 Dose: 1 tab Budesonide/Formoterol Fumarate (Symbicort) 2 puff IH BIDR ADAM PRN Reason: Protocol Stop: 03/23/18 22:01 Last Admin: 09/22/17 10:53 Dose: 2 puff Cyclobenzaprine HCl (Flexeril) 10 mg PO BID ADAM Stop: 03/23/18 21:01 Last Admin: 09/22/17 07:49 Dose: 10 mg Furosemide (Lasix) 40 mg PO BIDDIURETIC ADAM Stop: 03/24/18 17:01 Gabapentin (Neurontin) 300 mg PO TID ADAM Stop: 03/23/18 21:01 Last Admin: 09/22/17 07:49 Dose: 300 mg Amiodarone HCl/Dextrose (Amiodarone Drip Premix 360mg/200ml) 360 mg in 200 mls @ 16.667 mls/hr IVC CONT ADAM PRN Reason: 0.5 MG/MIN Stop: 03/23/18 21:46 Last Admin: 09/22/17 07:56 Dose: 0.5 mg/min, 16.667 mls/hr Ipratropium [place] (Atrovent Neb) 0.5 mg IH [id number] PRN PRN Reason: Shortness Of Breath/Wheezing Stop: 03/24/18 10:33 Loratadine (Claritin) 10 mg PO DAILY ADAM Stop: 03/24/18 09:01 Last Admin: 09/22/17 07:49 Dose: 10 mg Metoprolol Tartrate (Lopressor) 50 mg PO BID ADAM Stop: 03/23/18 21:01 Last Admin: 09/22/17 07:49 Dose: 50 mg Naloxone HCl (Narcan) 0.4 mg IVP Q2MIN PRN PRN Reason: SEE COMMENTS Stop: 03/23/18 17:09 Omeprazole (Prilosec) 40 mg PO DAILY ADAM Stop: 03/24/18 09:01 Last Admin: 09/22/17 07:49 Dose: 40 mg Rivaroxaban (Xarelto) 20 mg PO 1700 ADAM Stop: 03/23/18 17:16 Last Admin: 09/21/17 18:10 Dose: 20 mg Simvastatin (Zocor) 20 mg PO HS ADAM Stop: 03/23/18 21:01 Last Admin: 09/21/17 20:30 Dose: 20 mg Laboratory Tests 09/21/17 09/21/17 09/22/17 14:46 18:57 00:48 WBC Hgb Potassium Creatinine Magnesium 2.1 Troponin I < 0.03 < 0.03 < 0.03 TSH 1.269 09/22/17 09/22/17 00:48 00:48 WBC 11.4 H Hgb 13.2 Potassium 3.7 Creatinine 0.88 Magnesium Troponin I TSH - Imaging and Cardiology Chest Xray: report reviewed Echo: report reviewed - EKG Interpretation EKG results cardiology: personally reviewed (ECG with maged RVR.), other ( Telemetry reviewed with average HR previous 12 hours noted to be 134, a.fib. PVCs noted.) Consult Discharge Plan - Plan Referrals: Hansel Villatoro [Primary Care Provider] - 09/27/17 8:30 am
--- NOTE | 2017-09-22 15:05 | Electrocardiograph Report ---
[place] [id number] Test Date: 2017-09-21 Pat Name: Chaparro Ahmadi Department: 104 Room: 2N02 Gender: M Test Puller: : 1955 Requested By: Shasha See Order Number: [id number] Reading MD: Woody Salgado DO Measurements Intervals [place] Rate: 151 P: AK: 0 QRS: 73 QRSD: 81 T: 91 QT: 271 QTc: 357 Interpretive Statements ATRIAL FIBRILLATION WITH RAPID VENTRICULAR RESPONSE SEPTAL MYOCARDIAL INFARCTION, OF INDETERMINATE AGE Electronically Signed On 09-22-2017 15:03:51 EDT by Woody Salgado DO
[2017-09-22 15:28] LABS: INR 1.4; Prothrombin Time 15.7 Seconds (9.4-12.1)
[2017-09-22] MEDS ORDERED: *HR* LORazepam 2 MG/ML VIAL IVP PRN ×2 (15:39→15:40)
[2017-09-22] MEDS: Furosemide 40 MG TABLET PO SCH (16:01)
[2017-09-22] MEDS: Nicotine 21 MG PATCH.TD24 TD SCH (16:01)
[2017-09-22] MEDS: *HR* Enoxaparin 120 MG/0.8 ML SYRINGE SQ SCH (17:02)
[2017-09-22] MEDS ORDERED: *HR* Warfarin 2.5 MG TABLET PO ONE (18:00)
[2017-09-22] MEDS ORDERED: Warfarin perPT PO SCH (18:00)
[2017-09-23] MEDS: *HR* Enoxaparin 120 MG/0.8 ML SYRINGE SQ SCH ×2 (05:12→17:00)
[2017-09-23 06:26] LABS: INR 1.3; Prothrombin Time 14.3 Seconds (9.4-12.1)
[2017-09-23] MEDS: Gabapentin 300 MG CAPSULE PO SCH ×3 (07:37→19:47)
[2017-09-23] MEDS: Furosemide 40 MG TABLET PO SCH ×2 (07:38→17:00)
[2017-09-23] MEDS: Amiodarone Premix 360 MG/200 ML BAG IVC SCH ×2 (07:38→19:47)
[2017-09-23] MEDS: Loratadine 10 MG TABLET PO SCH (07:38)
[2017-09-23] MEDS: Nicotine 21 MG PATCH.TD24 TD SCH (07:38)
[2017-09-23] MEDS: Budesonide/Formoterol 160/4.5 MDI IH SCH ×2 (08:05→21:06)
[2017-09-23] MEDS: *HR* HYDROcodone/Acet 5/325 mg TABLET PO PRN ×2 (10:58→17:00)
--- NOTE | 2017-09-23 11:20 | Cardiology Progress Note ---
Date of Encounter: 09/23/17 Time of Encounter: 09:00 Assessment and Plan (1) Atrial fibrillation with RVR Current Visit: Yes Status: Acute Per cardiology: -Kown history of a.fib -A.fib RVR noted at primary cardiology office. -recent DCCV 08/2017. -On beta roland and amiodarone drip. -HR still tachyacrdic. -Had been on xarelto for anticoagulation, of note with valvular disease, xarelto was stopped. Patient was started on coumadin with lovenox bridging. -Of note, BP marginal 90-100s systolic. -TTE 08/2017 with severely dilated left atrium. -Continue amiodarone drip. Will attempt to uptitrate beta roland as BP will tolerate. -OF note, may require KIMBERLEY/DCCV on Monday. -Will continue to monitor. (2) Diastolic CHF Current Visit: Yes Status: Acute Per cardiology: -CHest x-ray with bibasilar infiltrates, possibly due to pnuemonia or edema. -TTE 08/2017 with moderate diastolic dysufnction. -Net negative 4825ml. -On oral lasix. -Currently euvlemic on exam. -Reports symptoms resolved. -CHF education reviewed with pateint. Qualifiers: Heart failure chronicity: acute Qualified Code(s): I50.31 - Acute diastolic (congestive) heart failure (3) Mitral valve prolapse Current Visit: Yes Status: Chronic Per cardiology: -KNown MVP -TTE 08/2017 with pisterior mitral leaflets prolapse noted, small mobile echodensity suggestive of partial flail or ruptured chordae tendinae. -Mild-moderate MR, eccentricu. May be underestimated. -Possible KIMBERLEY on Monday. -Will continue to monitor. Discussion w patient/family: The assessment and plan as outlined above was discussed with the patient and family who expressed understanding and agreement. All questions were answered. Thank you for involving us in the care of your patient. Please call with any questions. Discussed and reviewed with . Subjective Principal diagnosis: A.fib RVR Interval history: Patient reports is feeling better today. States shortness of breath and edema improved. Objective Vital Signs, Last 4 Hours Temp Pulse Resp BP Pulse Ox 09/23/17 11:10 97.4 F L 122 18 92/42 100 General: Conversant, No Apparent Distress HEENT: Atraumatic, Normocephaly, Mucus Membranes Moist Neck: No JVD, Normal carotid pulses Cardiac: Normal S1 and S2, Other (Irregularly irregular, Systolic murmur noted. ) Lungs: Normal Breath Sounds, No Wheeze, Rales, Rhonchi Neuro: Alert and responsive, No focal deficits noted Abdomen: Soft, Non-Tender Skin: No rashes noted on visualized skin Musculoskeletal: No Chest Wall Tenderness Extremities: No Clubbing, No Cyanosis, No Edema, Normal Pulses Results 09/22/17 00:48 09/22/17 00:48 Lab Results Active Medications Hydrocodone Bitart/Acetaminophen ([place] 5-325 Mg) 1 tab PO Q6HR PRN PRN Reason: Moderate Pain Stop: 03/23/18 17:55 Last Admin: 09/23/17 10:58 Dose: 1 tab Budesonide/Formoterol Fumarate (Symbicort) 2 puff IH BIDR ADAM PRN Reason: Protocol Stop: 03/23/18 22:01 Last Admin: 09/23/17 08:05 Dose: 2 puff Cyclobenzaprine HCl (Flexeril) 10 mg PO BID [facility] Stop: 03/23/18 21:01 Last Admin: 09/23/17 07:37 Dose: 10 mg Enoxaparin Sodium (Lovenox) 110 mg 1 mg/kg (110 mg) SQ Q12HR ADAM PRN Reason: Protocol Stop: 03/24/18 18:01 Last Admin: 09/23/17 05:12 Dose: 110 mg Furosemide (Lasix) 40 mg PO BIDDIURETIC ADAM Stop: 03/24/18 17:01 Last Admin: 09/23/17 07:38 Dose: 40 mg Gabapentin (Neurontin) 300 mg PO TID ADAM Stop: 03/23/18 21:01 Last Admin: 09/23/17 07:37 Dose: 300 mg Amiodarone HCl/Dextrose (Amiodarone Drip Premix 360mg/200ml) 360 mg in 200 mls @ 16.667 mls/hr IVC CONT ADAM PRN Reason: 0.5 MG/MIN Stop: 03/23/18 21:46 Last Admin: 09/23/17 07:38 Dose: 0.5 mg/min, 16.667 mls/hr Ipratropium [place] (Atrovent Neb) 0.5 mg IH [id number] PRN PRN Reason: Shortness Of Breath/Wheezing Stop: 03/24/18 10:33 Loratadine (Claritin) 10 mg PO DAILY ADAM Stop: 03/24/18 09:01 Last Admin: 09/23/17 07:38 Dose: 10 mg Lorazepam (Ativan) 1 mg IVP Q6HR PRN PRN Reason: Anxiety Stop: 03/24/18 15:40 Last Admin: 09/22/17 16:01 Dose: 1 mg Metoprolol Tartrate (Lopressor) 50 mg PO BID ADAM Stop: 03/23/18 21:01 Last Admin: 09/23/17 07:37 Dose: 50 mg Naloxone HCl (Narcan) 0.4 mg IVP Q2MIN PRN PRN Reason: SEE COMMENTS Stop: 03/23/18 17:09 Nicotine (Nicoderm) 21 mg TD DAILY ADAM PRN Reason: Protocol Stop: 03/24/18 15:46 Last Admin: 09/23/17 07:38 Dose: 21 mg Omeprazole (Prilosec) 40 mg PO DAILY ADAM Stop: 03/24/18 09:01 Last Admin: 09/23/17 07:37 Dose: 40 mg Simvastatin (Zocor) 20 mg PO HS ADAM Stop: 03/23/18 21:01 Last Admin: 09/22/17 19:52 Dose: 20 mg Warfarin Sodium (Coumadin Perpt) 1 each PO RPHPROT AADM Stop: 03/24/18 18:01 Laboratory Tests 09/22/17 09/22/17 09/23/17 00:48 00:48 05:57 Hgb 13.2 INR 1.3 Creatinine 0.88 - Imaging and Cardiology Chest Xray: report reviewed Echo: report reviewed - EKG Interpretation EKG results cardiology: other (Telemetry reviewed with average HR previous 12 hours noted to be 122, a.fib. PVCs noted.) - VTE Reasons for not Prescribing Prophylaxis: Not indicated-Anticoagulated or INR therapeutic Consult Discharge Plan - Plan Referrals: Hansel Villatoro [Primary Care Provider] - 09/27/17 8:30 am
--- NOTE | 2017-09-23 11:31 | Internal Med Progress Note ---
Date of Encounter: 09/23/17 Time of Encounter: 11:31 - Assessment and plan (1) CHF (congestive heart failure) Current Visit: Yes Status: Acute Assessment and plan: Clinically improving. Continue supportive care and monitor fluid status. Qualifiers: Heart failure type: diastolic Heart failure chronicity: acute on chronic Qualified Code(s): I50.33 - Acute on chronic diastolic (congestive) heart failure (2) A-fib Current Visit: Yes Status: Acute Assessment and plan: Remains tachycardic. On amio drip. Cardiology management. Qualifiers: Atrial fibrillation type: paroxysmal Qualified Code(s): I48.0 - Paroxysmal atrial fibrillation (3) Tobacco abuse Current Visit: Yes Status: Chronic Assessment and plan: Cessation counselling. (4) COPD (chronic obstructive pulmonary disease) Current Visit: Yes Status: Chronic Assessment and plan: Chronic issue. Qualifiers: COPD type: unspecified COPD Qualified Code(s): J44.9 - Chronic obstructive pulmonary disease, unspecified (5) Mitral regurgitation Current Visit: Yes Status: Chronic Assessment and plan: Chronic issue Qualifiers: Cardiac valve disease etiology: etiology unspecified Qualified Code(s): I34.0 - Nonrheumatic mitral (valve) insufficiency (6) Mitral valve prolapse Current Visit: Yes Status: Chronic Assessment and plan: Chronic issue. Outpatient management. - Subjective Interval history: Mr Ahmadi is currently admitted for rapid atrial fib and CHF. He remains moderate to high risk due to potential for worsening clinical status. He remains on amio drip. Mr Ahmadi feels somewhat better today. His heartrate is still elevated. No fever or chills. Tolerating meds. No GI issues. - Constitutional Vitals: Temp Pulse Resp BP Pulse Ox 97.4 F L 122 18 92/42 100 09/23/17 11:10 09/23/17 11:10 09/23/17 11:10 09/23/17 11:10 09/23/17 11:10 General appearance: Present: cooperative, A&O X 3, answers questions appropriately - Head Head exam: Present: normocephalic - Eye Eye exam: Present: conjuntiva pink - ENT ENT exam: Present: mucous membranes dry - Respiratory Respiratory exam: Present: CTAB. Absent: rales, rhonchi, wheezes - Cardiovascular Cardiovascular exam: Present: irregular rhythm, tachycardia - GI/Abdominal GI/Abdominal exam: Present: soft. Absent: tenderness - Extremities Exam Extremities exam: Present: warm. Absent: tenderness - Neurological Exam Neurological exam: Present: alert, oriented X3 - Skin Skin exam: Present: dry, warm Internal Medicine: Result - Labs CBC & Chem 7: 09/22/17 00:48 09/22/17 00:48 - ABG Interpretation ABG results: PT/INR, D-dimer PT 14.3 Seconds (9.4-12.1) H 09/23/17 05:57 - VTE Reasons for not Prescribing Prophylaxis: Not indicated-Anticoagulated or INR therapeutic Consult Discharge Plan - Plan Referrals: Hansel Villatoro [Primary Care Provider] - 09/27/17 8:30 am
[2017-09-23] MEDS ORDERED: *HR* Warfarin 2.5 MG TABLET PO ONE (18:00)
[2017-09-24] MEDS: *HR* HYDROcodone/Acet 5/325 mg TABLET PO PRN ×3 (01:11→22:38)
[2017-09-24] MEDS: *HR* Enoxaparin 120 MG/0.8 ML SYRINGE SQ SCH ×2 (05:51→18:01)
[2017-09-24 07:02] LABS: INR 1.2; Prothrombin Time 12.7 Seconds (9.4-12.1)
[2017-09-24 07:17] LABS: Hematocrit 39.4 % (37.5-50.1); Hemoglobin 12.7 g/dL (12.9-16.9); Mean Corpuscular HGB Conc 32.2 g/dL (31.6-35.5); Mean Corpuscular Hemoglobin 31.6 pg (28.0-33.3); Mean Platelet Volume 9.6 fL (9.4-12.4); Platelet Count 263 K/mcL (140-400); Red Blood Count 4.02 M/mcL (4.19-5.50); Red Cell Distribution Width 13.5 % (11.5-14.5)
[2017-09-24 07:18] LABS: BUN/Creatinine Ratio 17 (6-26); Blood Urea Nitrogen 18 mg/dL (8-23); Calcium 9.3 mg/dL (8.6-10.3); Carbon Dioxide 24 mEq/L (23-29); Chloride 108 mEq/L (98-107); Glucose 114 mg/dL (70-105); Osmolality,Calculated 289 (280-300); Potassium 3.5 mEq/L (3.5-5.1); Sodium 138 mEq/L (136-145); eGFR For African Americans > 60 (> 60); eGFR For Non-African Americans > 60 (> 60)
[2017-09-24] MEDS: Budesonide/Formoterol 160/4.5 MDI IH SCH ×2 (07:45→21:40)
[2017-09-24] MEDS: Nicotine 21 MG PATCH.TD24 TD SCH (08:06)
[2017-09-24] MEDS: Furosemide 40 MG TABLET PO SCH ×2 (08:10→16:15)
[2017-09-24] MEDS: Gabapentin 300 MG CAPSULE PO SCH ×3 (08:10→20:49)
[2017-09-24] MEDS: Loratadine 10 MG TABLET PO SCH (08:10)
[2017-09-24] MEDS: Amiodarone Premix 360 MG/200 ML BAG IVC SCH ×2 (08:11→19:36)
--- NOTE | 2017-09-24 11:01 | Cardiology Progress Note ---
Date of Encounter: 09/24/17 Time of Encounter: 09:00 Assessment and Plan (1) Atrial fibrillation with RVR Current Visit: Yes Status: Acute Per cardiology: -Kown history of a.fib -A.fib RVR noted at primary cardiology office. -recent DCCV 08/2017. -On beta roland and amiodarone drip. -HR still tachyacrdic, average HR 115. -Had been on xarelto for anticoagulation, of note with valvular disease, xarelto was stopped. Patient was started on coumadin with lovenox bridging. Denies missed doses of xarelto prior to admission. -Of note, BP marginal 90-100s systolic. -TTE 08/2017 with severely dilated left atrium. -Continue amiodarone drip. Will attempt to uptitrate beta roland as BP will tolerate. -OF note, may require KIMBERLEY/DCCV on Monday. -Will continue to monitor. (2) Diastolic CHF Current Visit: Yes Status: Acute Per cardiology: -CHest x-ray with bibasilar infiltrates, possibly due to pnuemonia or edema. -TTE 08/2017 with moderate diastolic dysufnction. -Net negative 4700ml. -On oral lasix. -Currently euvlemic on exam. -Reports symptoms resolved. -CHF education reviewed with pateint. Qualifiers: Heart failure chronicity: acute Qualified Code(s): I50.31 - Acute diastolic (congestive) heart failure (3) Mitral valve prolapse Current Visit: Yes Status: Chronic Per cardiology: -KNown MVP -TTE 08/2017 with pisterior mitral leaflets prolapse noted, small mobile echodensity suggestive of partial flail or ruptured chordae tendinae. -Mild-moderate MR, eccentric. May be underestimated. -Possible KIMBERLEY on Monday. -Will continue to monitor. Discussion w patient/family: The assessment and plan as outlined above was discussed with the patient and family who expressed understanding and agreement. All questions were answered. Thank you for involving us in the care of your patient. Please call with any questions. Discussed and reviewed with . Subjective Principal diagnosis: A.fib RVR Interval history: Patient reports is feeling better today. States shortness of breath and edema improved. Objective Vital Signs, Last 4 Hours Temp Pulse Resp BP Pulse Ox 09/24/17 07:45 18 97 09/24/17 07:31 97.9 F 117 18 101/76 97 General: Conversant, No Apparent Distress HEENT: Atraumatic, Normocephaly, Mucus Membranes Moist Neck: No JVD, Normal carotid pulses Cardiac: Normal S1 and S2, Other (Irregularly irregular, systolic murmur noted. ) Lungs: Normal Breath Sounds, No Wheeze, Rales, Rhonchi Neuro: Alert and responsive, No focal deficits noted Abdomen: Soft, Non-Tender Skin: No rashes noted on visualized skin Musculoskeletal: No Chest Wall Tenderness Extremities: No Clubbing, No Cyanosis, No Edema, Normal Pulses Results 09/24/17 06:19 09/24/17 06:19 Lab Results Active Medications Hydrocodone Bitart/Acetaminophen ([place] 5-325 Mg) 1 tab PO Q6HR PRN PRN Reason: Moderate Pain Stop: 03/23/18 17:55 Last Admin: 09/24/17 01:11 Dose: 1 tab Budesonide/Formoterol Fumarate (Symbicort) 2 puff IH BIDR ADAM PRN Reason: Protocol Stop: 03/23/18 22:01 Last Admin: 09/24/17 07:45 Dose: 2 puff Cyclobenzaprine HCl (Flexeril) 10 mg PO BID ADAM Stop: 03/23/18 21:01 Last Admin: 09/24/17 08:10 Dose: 10 mg Enoxaparin Sodium (Lovenox) 110 mg 1 mg/kg (110 mg) SQ Q12HR ADAM PRN Reason: Protocol Stop: 03/24/18 18:01 Last Admin: 09/24/17 05:51 Dose: 110 mg Furosemide (Lasix) 40 mg PO BIDDIURETIC ADAM Stop: 03/24/18 17:01 Last Admin: 09/24/17 08:10 Dose: 40 mg Gabapentin (Neurontin) 300 mg PO TID ADAM Stop: 03/23/18 21:01 Last Admin: 09/24/17 08:10 Dose: 300 mg Amiodarone HCl/Dextrose (Amiodarone Drip Premix 360mg/200ml) 360 mg in 200 mls @ 16.667 mls/hr IVC CONT ADAM PRN Reason: 0.5 MG/MIN Stop: 03/23/18 21:46 Last Admin: 09/24/17 08:11 Dose: 0.5 mg/min, 16.667 mls/hr Ipratropium [place] (Atrovent Neb) 0.5 mg IH [id number] PRN PRN Reason: Shortness Of Breath/Wheezing Stop: 03/24/18 10:33 Loratadine (Claritin) 10 mg PO DAILY ADAM Stop: 03/24/18 09:01 Last Admin: 09/24/17 08:10 Dose: 10 mg Lorazepam (Ativan) 1 mg IVP Q6HR PRN PRN Reason: Anxiety Stop: 03/24/18 15:40 Last Admin: 09/22/17 16:01 Dose: 1 mg Metoprolol Tartrate (Lopressor) 50 mg PO BID ADAM Stop: 03/23/18 21:01 Last Admin: 09/24/17 08:10 Dose: 50 mg Naloxone HCl (Narcan) 0.4 mg IVP Q2MIN PRN PRN Reason: SEE COMMENTS Stop: 03/23/18 17:09 Nicotine (Nicoderm) 21 mg TD DAILY ADAM PRN Reason: Protocol Stop: 03/24/18 15:46 Last Admin: 09/24/17 08:06 Dose: 21 mg Omeprazole (Prilosec) 40 mg PO DAILY ADAM Stop: 03/24/18 09:01 Last Admin: 09/24/17 08:10 Dose: 40 mg Simvastatin (Zocor) 20 mg PO HS ADAM Stop: 03/23/18 21:01 Last Admin: 09/23/17 19:47 Dose: 20 mg Warfarin Sodium (Coumadin Perpt) 1 each PO RPHPROT ADAM Stop: 03/24/18 18:01 Warfarin Sodium (Coumadin) 3 mg PO ONCE ONE Stop: 09/24/17 18:01 Laboratory Tests 09/24/17 09/24/17 06:19 06:19 Hgb 12.7 L Potassium 3.5 Creatinine 1.04 - Imaging and Cardiology Chest Xray: report reviewed Echo: report reviewed - EKG Interpretation EKG results cardiology: other (Telemetry reviewed with average HR previous 12 hours noted to be 115, a.fib. PVCs noted.) - VTE Reasons for not Prescribing Prophylaxis: Not indicated-Anticoagulated or INR therapeutic Consult Discharge Plan - Plan Referrals: Hansel Villatoro [Primary Care Provider] - 09/27/17 8:30 am
--- NOTE | 2017-09-24 12:12 | Internal Med Progress Note ---
<Sonny Ballesteros - Last Filed: 09/24/17 13:38> Date of Encounter: 09/24/17 Time of Encounter: 13:17 - Assessment and plan (1) Atrial fibrillation with RVR Current Visit: Yes Status: Acute Assessment and plan: Patient currently on amiodarone drip. Cardiology is managing. Patient is scheduled for transthoracic echocardiogram tomorrow. There is possible consideration for cardioversion prior to the echo. Patient currently on anticoagulation. He is currently being bridged to Coumadin. MAP is currently greater than 65. However, blood pressures have been labile and a bit on the lower end. This has been making control of the atrial fibrillation with RVR more difficult. Continue monitoring. (2) CHF (congestive heart failure) Current Visit: Yes Status: Acute Assessment and plan: Clinically, patient does not appear to be edematous. More rhonchi auscultated on lung exam that rales. Patient scheduled for repeat echocardiogram tomorrow as mentioned above. Patient currently being diuresed with 40 mg Lasix twice daily. Creatinine function is currently stable at 1.04. Continue monitoring electrolytes and BUN and creatinine. Qualifiers: Heart failure type: diastolic Heart failure chronicity: acute on chronic Qualified Code(s): I50.33 - Acute on chronic diastolic (congestive) heart failure (3) COPD (chronic obstructive pulmonary disease) Current Visit: Yes Status: Chronic Assessment and plan: Stable. 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 Patient attributes this to where they placed a Lovenox shot. At this time, I do not suspect dissection or any other acute intra-abdominal process that would warrant further management. However, if abdominal pain worsens, would consider performing CTA. Qualifiers: Abdominal location: left lower quadrant Qualified Code(s): R10.32 - Left lower quadrant pain - Subjective Interval history: 62-year-old male with a fibrillation with RVR is currently on amiodarone drip. Cardiology plans to possibly do cardioversion on Monday followed by echocardiogram. Patient is currently not having any complaints. He denies having any shortness of breath. He denies having any chest palpitations. Patient does report some mild left lower quadrant abdominal pain that he attributes to him receiving Lovenox shot. Denies any nausea, vomiting, constipation, diarrhea, hematochezia, melena, fever. - Constitutional Vitals: Temp Pulse Resp BP Pulse Ox 97.6 F 120 18 96/78 97 09/24/17 11:59 09/24/17 11:59 09/24/17 11:59 09/24/17 11:59 09/24/17 11:59 General appearance: Present: cooperative, A&O X 3, answers questions appropriately Exam: Tall, lanky male, no acute distress - Head Head exam: Present: atraumatic Additional comments: Frontal bossing - ENT ENT exam: Present: mucous membranes moist - Neck Neck exam general surgery: Present: full ROM, normal inspection, supple, trachea midline - Respiratory Respiratory exam: Present: rhonchi (Mild rhonchi in the lower lobes.) - Cardiovascular Cardiovascular exam: Present: irregular rhythm. Absent: JVD Additional comments: Telemetry: A fifth with RVR in the 110s to 130s - GI/Abdominal GI/Abdominal exam: Present: soft, no peritoneal signs. Absent: rebound, tenderness - Extremities Exam Extremities exam: Present: warm. Absent: pedal edema - Neurological Exam Neurological exam: Present: oriented X3 Internal Medicine: Result - Labs CBC & Chem 7: 09/24/17 06:19 09/24/17 06:19 Labs: Short CBC 09/24/17 Range/Units 06:19 WBC 9.7 (4.3-11.1) K/mcL Hgb 12.7 L (12.9-16.9) g/dL Hct 39.4 (37.5-50.1) % Plt Count 263 (140-400) K/mcL BMP 09/24/17 06:19 Sodium 138 Potassium 3.5 Chloride 108 H Carbon Dioxide 24 BUN 18 Creatinine 1.04 Glucose 114 H Calcium 9.3 - ABG Interpretation ABG results: PT/INR, D-dimer PT 12.7 Seconds (9.4-12.1) H 09/24/17 06:19 - VTE Reasons for not Prescribing Prophylaxis: Not indicated-Anticoagulated or INR therapeutic Consult Discharge Plan - Plan Referrals: Hansel Villatoro [Primary Care Provider] - 09/27/17 8:30 am <Jeffrey Johnson - Last Filed: 09/24/17 17:53> Date of Encounter: 09/24/17 - Assessment and plan (1) CHF (congestive heart failure) Current Visit: Yes Status: Acute Qualifiers: Heart failure type: diastolic Heart failure chronicity: acute on chronic Qualified Code(s): I50.33 - Acute on chronic diastolic (congestive) heart failure (2) A-fib Current Visit: Yes Status: Acute Qualifiers: Atrial fibrillation type: paroxysmal Qualified Code(s): I48.0 - Paroxysmal atrial fibrillation (3) Tobacco abuse Current Visit: Yes Status: Chronic (4) COPD (chronic obstructive pulmonary disease) Current Visit: Yes Status: Chronic Qualifiers: COPD type: unspecified COPD Qualified Code(s): J44.9 - Chronic obstructive pulmonary disease, unspecified (5) Mitral regurgitation Current Visit: Yes Status: Chronic Qualifiers: Cardiac valve disease etiology: etiology unspecified Qualified Code(s): I34.0 - Nonrheumatic mitral (valve) insufficiency (6) Mitral valve prolapse Current Visit: Yes Status: Chronic - Constitutional Vitals: Temp Pulse Resp BP Pulse Ox 97.6 F 120 18 96/78 97 09/24/17 11:59 09/24/17 11:59 09/24/17 11:59 09/24/17 11:59 09/24/17 11:59 Internal Medicine: Result - Labs CBC & Chem 7: 09/24/17 06:19 09/24/17 06:19 Labs: Short CBC 09/24/17 Range/Units 06:19 WBC 9.7 (4.3-11.1) K/mcL Hgb 12.7 L (12.9-16.9) g/dL Hct 39.4 (37.5-50.1) % Plt Count 263 (140-400) K/mcL BMP 09/24/17 06:19 Sodium 138 Potassium 3.5 Chloride 108 H Carbon Dioxide 24 BUN 18 Creatinine 1.04 Glucose 114 H Calcium 9.3 - ABG Interpretation ABG results: PT/INR, D-dimer PT 12.7 Seconds (9.4-12.1) H 09/24/17 06:19 - Attending Attestation I examined this patient and my medical decision-making was reviewed with the Resident Physician on 09/24/17. I agree with the documented findings, disposition and treatment plan as described except to the extent set forth below. Mr Ahmadi is currently admitted for rapid a fib and CHF. He remains moderate to high risk due to potential for worsening clinical status. Mr Ahmadi is doing OK. No CP. Some dyspnea. No fever or chills. Heart rate still elevated. Exam alert Comfortable Mucus membranes dry Heart irreg and tachy Lungs diminished with some rhonchi I/P 1. Rapid a fib 2. CHF Further diagnoses and plan as above.
[2017-09-24] MEDS ORDERED: *HR* Warfarin 3 MG TABLET PO ONE (18:00)
[2017-09-25 04:15] LABS: INR 1.2; Prothrombin Time 13.3 Seconds (9.4-12.1)
[2017-09-25] MEDS: *HR* Enoxaparin 120 MG/0.8 ML SYRINGE SQ SCH ×2 (05:16→16:42)
[2017-09-25] MEDS: Budesonide/Formoterol 160/4.5 MDI IH SCH ×2 (07:44→20:03)
[2017-09-25] MEDS: Amiodarone Premix 360 MG/200 ML BAG IVC SCH (07:57)
[2017-09-25] MEDS: Nicotine 21 MG PATCH.TD24 TD SCH (07:57)
[2017-09-25] MEDS: Loratadine 10 MG TABLET PO SCH (07:59)
[2017-09-25] MEDS: Gabapentin 300 MG CAPSULE PO SCH ×3 (07:59→20:18)
[2017-09-25] MEDS: Furosemide 40 MG TABLET PO SCH (07:59)
[2017-09-25] MEDS: *HR* HYDROcodone/Acet 5/325 mg TABLET PO PRN ×2 (09:58→20:20)
--- NOTE | 2017-09-25 10:27 | Event Note ---
Date of Encounter: 09/25/17 Time of Encounter: 10:22 - Cardiology Event Note PLan for cardioversion today. Patient has been in a.fib RVR, has been difficult to rate control due to marginal BPs. Average HR previous 12 hours noted to be 109. Patient was anticoagulated with xarelto prior to admission, denies missed doses in the past 30 days. Patient was switched from xarelto to coumadin while inpatient, however has been bridged with lovenox. Risks versus benefits of cardioversion explained to patient and family. Patient agreeable to proceed. Regarding mitral valve, plan for outpatient [facility] to re-evaluate valve. Will send coumadin clinic referral. Further recommendations pending cardioversion.
[2017-09-25] MEDS ORDERED: 0.9 % Sodium Chloride 500 ML IVC ONE (10:49)
--- NOTE | 2017-09-25 10:53 | Internal Med Progress Note ---
<Joel Tovar - Last Filed: 09/25/17 10:50> Date of Encounter: 09/25/17 Time of Encounter: 10:50 - Assessment and plan (1) Atrial fibrillation with RVR Current Visit: Yes Status: Acute Assessment and plan: Plan for cardioversion today. On amiodarone drip. Continue metoprolol. Anticoagulated with Coumadin bridging with Lovenox. (2) COPD (chronic obstructive pulmonary disease) Current Visit: Yes Status: Chronic Assessment and plan: Not an exacerbation. Continue nebulizer Continue home Symbicort Qualifiers: COPD type: unspecified COPD Qualified Code(s): J44.9 - Chronic obstructive pulmonary disease, unspecified (3) DVT prophylaxis Current Visit: Yes Status: Acute Assessment and plan: On Coumadin bridging with Lovenox. (4) Mitral valve prolapse Current Visit: Yes Status: Chronic Assessment and plan: Plan for [facility] outpatient as per cardiology (5) Tobacco abuse Current Visit: Yes Status: Chronic Assessment and plan: Patient educated on benefits of smoking cessation. Patient is on nicotine patch (6) Mitral regurgitation Current Visit: Yes Status: Chronic Assessment and plan: Follow-up with cardiology outpatient. Plan for [facility] outpatient Qualifiers: Cardiac valve disease etiology: etiology unspecified Qualified Code(s): I34.0 - Nonrheumatic mitral (valve) insufficiency (7) Diastolic CHF, acute on chronic Current Visit: Yes Status: Resolved Assessment and plan: Resolved. Plan for [facility] outpatient. Continue Lasix. Continue cardiac diet, fluid restricted 2000 mL daily. - Subjective Interval history: No acute events overnight. Patient denies any complaints. Patient continues to be in A. fib RVR. Heart rate overnight is 109. He is currently on amiodarone infusion. Plan for today is to undergo cardioversion and patient will be undergo [facility] outpatient. - Constitutional Vitals: Temp Pulse Resp BP Pulse Ox 97.7 F 124 17 109/95 98 09/25/17 07:07 09/25/17 10:46 09/25/17 10:46 09/25/17 10:46 09/25/17 10:46 General appearance: Present: cooperative, A&O X 3, answers questions appropriately - Other Additional findings: General: Pleasant without distress HEENT: Moist Mucous Membranes, Heart: Irregularly irregular, tachycardic Lungs: Clear to auscultation bilaterally Abdomen: Soft nontender, nondistended positive bowel sounds Skin: warm and dry Extremities: Absent pedal edema, Neuro: Alert oriented 3 Vascular: Pedal and radial pulses 2 out of 4 Internal Medicine: Result - Labs CBC & Chem 7: 09/24/17 06:19 09/24/17 06:19 - ABG Interpretation ABG results: PT/INR, D-dimer PT 13.3 Seconds (9.4-12.1) H 09/25/17 02:52 - VTE Reasons for not Prescribing Prophylaxis: Not indicated-Anticoagulated or INR therapeutic Consult Discharge Plan - Plan Referrals: Hansel Villatoro [Primary Care Provider] - 09/27/17 8:30 am <Jeffrey Johnson - Last Filed: 09/25/17 18:51> Date of Encounter: 09/25/17 - Assessment and plan (1) CHF (congestive heart failure) Current Visit: Yes Status: Acute Qualifiers: Heart failure type: diastolic Heart failure chronicity: acute on chronic Qualified Code(s): I50.33 - Acute on chronic diastolic (congestive) heart failure (2) A-fib Current Visit: Yes Status: Acute Qualifiers: Atrial fibrillation type: paroxysmal Qualified Code(s): I48.0 - Paroxysmal atrial fibrillation (3) Tobacco abuse Current Visit: Yes Status: Chronic (4) COPD (chronic obstructive pulmonary disease) Current Visit: Yes Status: Chronic Qualifiers: COPD type: unspecified COPD Qualified Code(s): J44.9 - Chronic obstructive pulmonary disease, unspecified (5) Mitral regurgitation Current Visit: Yes Status: Chronic Qualifiers: Cardiac valve disease etiology: etiology unspecified Qualified Code(s): I34.0 - Nonrheumatic mitral (valve) insufficiency (6) Mitral valve prolapse Current Visit: Yes Status: Chronic - Constitutional Vitals: Temp Pulse Resp BP Pulse Ox 97.7 F 77 16 120/87 99 09/25/17 17:58 09/25/17 17:58 09/25/17 17:58 09/25/17 17:58 09/25/17 11:13 Internal Medicine: Result - Labs CBC & Chem 7: 09/24/17 06:19 09/24/17 06:19 - ABG Interpretation ABG results: PT/INR, D-dimer PT 13.3 Seconds (9.4-12.1) H 09/25/17 02:52 - Attending Attestation I examined this patient and my medical decision-making was reviewed with the Resident Physician on 09/25/17. I agree with the documented findings, disposition and treatment plan as described except to the extent set forth below. Mr Ahmadi is currently admitted for rapid a fib. He had cardioversion today. He remains moderate to high risk due to potential for worsening clinical status. Mr Ahmadi had cardioversion today. He is doing OK and is in sinus rhythm. No fever or chills. No other new issues. Exam Alert Comfortable Mucus membranes dry Heart reg No edema I/P 1. Parox a fib 2. Smoker Further diagnoses and plan as above.
[2017-09-25] MEDS: *HR* FentaNYL (PF) 100 MCG/2 ML VIAL IVP PRN ×2 (11:50→11:54)
[2017-09-25] MEDS: *HR* Midazolam HCl 5 MG/5 ML VIAL IVP PRN ×2 (11:50→11:54)
--- NOTE | 2017-09-25 15:22 | Event Note ---
Date of Encounter: 09/25/17 Time of Encounter: 15:20 - Cardiology Event Note Patient is s/p DCCV. Per discussion with , will start amiodarone 200mg BID for one week, then 200mg daily. Will stop amiodarone drip. [facility] referral form faxed to coumadin clinic. Will need bridged with lovenox until INR therapuetic with goal INR 2-3. Cardiology will continue to monitor.
[2017-09-25] MEDS ORDERED: *HR* Warfarin 5 MG TABLET PO ONE (18:00)
[2017-09-25] MEDS: *HR* Amiodarone 200 MG TABLET PO SCH (20:18)
[2017-09-26 05:48] LABS: INR 1.4; Prothrombin Time 15.1 Seconds (9.4-12.1)
[2017-09-26] MEDS: *HR* Enoxaparin 120 MG/0.8 ML SYRINGE SQ SCH (06:15)
[2017-09-26] MEDS: *HR* HYDROcodone/Acet 5/325 mg TABLET PO PRN (06:19)
[2017-09-26] MEDS: Budesonide/Formoterol 160/4.5 MDI IH SCH (07:48)
[2017-09-26 07:56] VITALS: BP 121/91
[2017-09-26] MEDS: Nicotine 21 MG PATCH.TD24 TD SCH (08:29)
[2017-09-26] MEDS: Gabapentin 300 MG CAPSULE PO SCH (08:31)
[2017-09-26] MEDS: *HR* Amiodarone 200 MG TABLET PO SCH (08:31)
[2017-09-26] MEDS: Loratadine 10 MG TABLET PO SCH (08:32)
--- NOTE | 2017-09-26 08:44 | Discharge Summary ---
Addendum entered and electronically signed by Joel Tovar DO 15:32: Patient discharged on Lovenox 110mg Daily SQ x 6 doses but told to take it BID due to insurance issues. Original Note: <Joel Tovar - Last Filed: 09/26/17 08:35> Orders not resulted at time of discharge: Pending orders 09/26/17 08:20 EKG [ECG 12 lead ECG] [ECG] Stat 09/27/17 04:00 PT/INR [Prothrombin Time INR] [COAG] AM 0400 Date of Encounter: 09/26/17 Time of Encounter: 08:36 - Discharge Diagnosis (1) Atrial fibrillation with RVR Priority: Primary Status: Resolved (2) COPD (chronic obstructive pulmonary disease) Priority: Secondary Status: Chronic Qualifiers: COPD type: unspecified COPD Qualified Code(s): J44.9 - Chronic obstructive pulmonary disease, unspecified (3) DVT prophylaxis Priority: Secondary Status: Acute (4) Mitral valve prolapse Priority: Secondary Status: Chronic (5) Tobacco abuse Priority: Secondary Status: Chronic (6) Mitral regurgitation Priority: Secondary Status: Chronic Qualifiers: Cardiac valve disease etiology: etiology unspecified Qualified Code(s): I34.0 - Nonrheumatic mitral (valve) insufficiency (7) Diastolic CHF, acute on chronic Priority: Secondary Status: Resolved Hospital course: Mr. Ahmadi is a 62 year old male presented with chief complaint of shortness of breath, tachycardia, palpitations. Patient was found to be in A. fib RVR and CHF exacerbation. Patient was started on amiodarone drip and cardiology was consulted. Patient was started on IV Lasix for diuresis. Patient rapidly diuresis within the first 24 hours and Lasix was decreased to 60 mg daily. Patient's metoprolol was increased to 50 mg twice a day. Cardiology recommended patient undergo cardioversion. After Cardizem patient has been in stable sinus rhythm. Amiodarone drip was transitioned to amiodarone by mouth. Patient's xeralto was discontinued and he was started on Coumadin bridging with Lovenox. Patient will follow-up with Coumadin clinic, cardiology and PCP outpatient. This morning he denies chest pain, shortness of breath, cough, lower extremity pain, headache, blurry vision. He is ambulating independently. He is tolerating his diet. Medications: Amiodarone 200 mg twice a day 1 week and thereafter amiodarone 200 mg daily. Coumadin. Lovenox 110 mg every 12 for 3 additional days. Lasix 60 mg daily. - Time Spent with Patient Total time spent providing and/or coordinating discharge services: - Discharge Medications Prescriptions: Enoxaparin [Lovenox] 110 mg SQ Q12HR #6 syringe Amiodarone [Cordarone] 200 mg PO BID #12 tablet Amiodarone [Cordarone] 200 mg PO DAILY 30 Days #30 tablet Furosemide [Lasix] 60 mg PO DAILY #45 tablet Miscellaneous Medical Supply [Blood Pressure Cuff] 1 each MC DAILY #1 each Warfarin [Coumadin] 5 mg PO 1800 #15 tablet Home Medications: Albuterol Sulfate [Ventolin Hfa] 2 puff IH Q4H PRN 05/02/16 [History] Cetirizine HCl [Zyrtec] 10 mg PO DAILY 05/02/16 [History] Cyclobenzaprine [Flexeril] 10 mg PO BID 05/02/16 [History] Gabapentin [Neurontin] 300 mg PO TID 05/02/16 [History] HYDROcodone/Acet 5/325 mg [Alcolu 5-325 mg] 1 tab PO TID PRN 05/02/16 [History] Albuterol Neb [Proventil Neb] 2.5 mg IH Q4HR PRN 08/02/17 [History] Budesonide/Formoterol 160/4.5 [Symbicort 160/4.5] 2 puff IH BIDR 08/02/17 [ History] Pravastatin Sodium [Pravachol] 40 mg PO HS 08/02/17 [History] Metoprolol Tartrate 50 mg PO BID 09/21/17 [History] Omeprazole [PriLOSEC] 40 mg PO DAILY 09/21/17 [History] Amiodarone [Cordarone] 200 mg PO BID #12 tablet 09/26/17 [Rx] Amiodarone [Cordarone] 200 mg PO DAILY 30 Days #30 tablet 09/26/17 [Rx] Enoxaparin [Lovenox] 110 mg SQ Q12HR #6 syringe 09/26/17 [Rx] Furosemide [Lasix] 60 mg PO DAILY #45 tablet 09/26/17 [Rx] Miscellaneous Medical Supply [Blood Pressure Cuff] 1 each DAILY #1 each 09/26 [Rx] Warfarin [Coumadin] 5 mg PO 1800 #15 tablet 09/26/17 [Rx] Allergies/Adverse Reactions: 3 Allergy/AdvReac Type Severity Reaction Status Date / Time No Known Allergies Allergy Verified 09/21/17 14:17 Date of admission: 09/22/17 10:46 Primary care physician: Hansel Villatoro Consults: Cardiology Discharging clinician: Joel Tovar Anticipated date of discharge: 09/26/17 - Constitutional Vitals: Temp Pulse Resp BP Pulse Ox 97.5 F L 62 13 121/91 100 09/26/17 07:52 09/26/17 07:57 09/26/17 07:52 09/26/17 07:52 09/26/17 07:49 General appearance: Present: cooperative, A&O X 3, answers questions appropriately - Other Additional findings: General: Pleasant without distress HEENT: Head atraumatic, normocephalic, EOMI, PERRL, neck nontender to palpation , absent lymphadenopathy, Moist Mucous Membranes, Heart: Regular rate and rhythm with no murmur Lungs: Clear to auscultation bilaterally Abdomen: Soft nontender, nondistended positive bowel sounds Skin: warm and dry Extremities: Absent pedal edema, Neuro: Cranial nerves II through XII intact, UE and LE sensation equal bilaterally, UE and LE strength 5/5, alert oriented 3, Vascular: Pedal and radial pulses 2 out of 4 - Patient Status Disposition: Home, Self-Care Condition: Fair Functional capacity at discharge: independent ambulation Overall status at discharge: patient is progressing back to baseline - Discharge Instructions Instructions: Warfarin (By mouth), Amiodarone (By mouth), Enoxaparin (Injection ), Atrial Fibrillation (GEN) Follow Up With: Hansel Villatoro [Primary Care Provider] - 09/27/17 8:30 am Lida Reed, BUSINESS DEVELOPMENT REPRESENTATIVE [Advanced Practice Nurse] - (CARDIOLOGY OFFICE WILL CALL YOU WITH F/U APPOINTMENT) - Diet and Activity Activity: increase activity as tolerated Diet: low fat, low cholesterol, low salt diet - VTE Reasons for not Prescribing Prophylaxis: Not indicated-Anticoagulated or INR therapeutic <Modesto Frank - Last Filed: 09/26/17 17:17> Date of Encounter: 09/26/17 Hospital course: Mr. Ahmadi is a 62 year old male - Time Spent with Patient Total time spent providing and/or coordinating discharge services: Date of admission: 09/22/17 10:46 Primary care physician: Hansel Villatoro - Constitutional Vitals: Temp Pulse Resp BP Pulse Ox 97.5 F L 62 13 121/91 100 09/26/17 07:52 09/26/17 07:57 09/26/17 07:52 09/26/17 07:52 09/26/17 07:49 - Attending Attestation I performed a [id number] diagnostic evaluation of this patient and my medical decision-making was reviewed with the Resident Physician, Dr Joel Tovar. I agree with the documented findings, disposition and treatment plan as described except to the extent set forth below. Patient denies chest pain and shortness of breath. On exam he is in no acute distress. Heart exam reveals regular S1-S2 with no murmurs rubs or gallops. Plan: We will discharge the patient with Lovenox bridging to Coumadin. I have prescribed 110 mg of Lovenox daily to facilitate insurance coverage, however the patient was instructed to take one 110 mg twice a day according to corresponding 1 mg/kg every 12 hours. He will take 5 mg Coumadin daily. Currently INR is 1.4. He will go to Coumadin clinic before the end of the week. Modesto Frank MD
--- NOTE | 2017-09-26 08:53 | Cardiology Progress Note ---
Date of Encounter: 09/26/17 Time of Encounter: 08:30 Assessment and Plan (1) Atrial fibrillation with RVR Current Visit: Yes Status: Resolved Per cardiology: -Kown history of a.fib -A.fib RVR noted at primary cardiology office. -recent DCCV 08/2017. -On beta roland and amiodarone oral 200mg BID. -s/p DCCV yesterday. Now SR, average HR 68. -Had been on xarelto for anticoagulation, of note with valvular disease, xarelto was stopped. Patient was started on coumadin with lovenox bridging. Denies missed doses of xarelto prior to admission. -TTE 08/2017 with severely dilated left atrium. -Per discussion with , recommend amiodarone 200mg BID for one week, then 200mg daily. -Recommend coumadin with bridging with lovenox. Coumadin clinic referral sent to [facility]. [facility] will monitor INRs until seen by [facility]. -Cardiology will sign off and will follow in outpatient setting. FOllow up set. (2) Diastolic CHF Current Visit: Yes Status: Acute Per cardiology: -CHest x-ray with bibasilar infiltrates, possibly due to pnuemonia or edema. -TTE 08/2017 with moderate diastolic dysufnction. -Net negative 5200ml. -On oral lasix. -Currently euvlemic on exam. -Reports symptoms resolved. -CHF education reviewed with pateint. Qualifiers: Heart failure chronicity: acute Qualified Code(s): I50.31 - Acute diastolic (congestive) heart failure (3) Mitral valve prolapse Current Visit: Yes Status: Chronic Per cardiology: -KNown MVP -TTE 08/2017 with pisterior mitral leaflets prolapse noted, small mobile echodensity suggestive of partial flail or ruptured chordae tendinae. -Mild-moderate MR, eccentric. May be underestimated. -Per discussion with , recommend repeat KIMBERLEY when in SR and HR controlled, can be completed as outpatient. Will set up outpatinet follow up. Discussion w patient/family: The assessment and plan as outlined above was discussed with the patient and family who expressed understanding and agreement. All questions were answered. Thank you for involving us in the care of your patient. Please call with any questions. Discussed and reviewed with . Subjective Principal diagnosis: A.fib RVR Interval history: Patient reports is feeling better today. States shortness of breath and edema improved. Patient now in SR. Objective Vital Signs, Last 4 Hours Temp Pulse Resp BP Pulse Ox 09/26/17 07:57 62 09/26/17 07:52 97.5 F L 62 13 121/91 09/26/17 07:49 16 100 09/26/17 07:30 64 General: Conversant, No Apparent Distress HEENT: Atraumatic, Normocephaly, Mucus Membranes Moist Neck: No JVD, Normal carotid pulses Cardiac: Reg Rate and Rhythm, Normal S1 and S2, Other (Systolic murmur noted. ) Lungs: Normal Breath Sounds, No Wheeze, Rales, Rhonchi Neuro: Alert and responsive, No focal deficits noted Abdomen: Soft, Non-Tender Skin: No rashes noted on visualized skin Musculoskeletal: No Chest Wall Tenderness Extremities: No Clubbing, No Cyanosis, No Edema, Normal Pulses Results 09/24/17 06:19 09/24/17 06:19 Lab Results Active Medications Hydrocodone Bitart/Acetaminophen ([place] 5-325 Mg) 1 tab PO Q6HR PRN PRN Reason: Moderate Pain Stop: 03/23/18 17:55 Last Admin: 09/26/17 06:19 Dose: 1 tab Amiodarone HCl (Cordarone) 200 mg PO BID ADAM Stop: 03/27/18 21:01 Last Admin: 09/26/17 08:31 Dose: 200 mg Budesonide/Formoterol Fumarate (Symbicort) 2 puff IH BIDR ADAM PRN Reason: Protocol Stop: 03/23/18 22:01 Last Admin: 09/26/17 07:48 Dose: 2 puff Cyclobenzaprine HCl (Flexeril) 10 mg PO BID ADAM Stop: 03/23/18 21:01 Last Admin: 09/26/17 08:31 Dose: 10 mg Enoxaparin Sodium (Lovenox) 110 mg 1 mg/kg (110 mg) SQ Q12HR ADAM PRN Reason: Protocol Stop: 03/24/18 18:01 Last Admin: 09/26/17 06:15 Dose: 110 mg Furosemide 20 mg/ Furosemide (40 mg) 60 mg PO DAILY ADAM Stop: 03/28/18 09:01 Last Admin: 09/26/17 08:31 Dose: 60 mg Gabapentin (Neurontin) 300 mg PO TID ADAM Stop: 03/23/18 21:01 Last Admin: 09/26/17 08:31 Dose: 300 mg Ipratropium Speculator (Atrovent Neb) 0.5 mg IH [id number] PRN PRN Reason: Shortness Of Breath/Wheezing Stop: 03/24/18 10:33 Loratadine (Claritin) 10 mg PO DAILY ADAM Stop: 03/24/18 09:01 Last Admin: 09/26/17 08:32 Dose: 10 mg Lorazepam (Ativan) 1 mg IVP Q6HR PRN PRN Reason: Anxiety Stop: 03/24/18 15:40 Last Admin: 09/22/17 16:01 Dose: 1 mg Metoprolol Tartrate (Lopressor) 50 mg PO BID [facility] Stop: 03/23/18 21:01 Last Admin: 09/26/17 08:32 Dose: 50 mg Naloxone HCl (Narcan) 0.4 mg IVP Q2MIN PRN PRN Reason: SEE COMMENTS Stop: 03/23/18 17:09 Nicotine (Nicoderm) 21 mg TD DAILY ADAM PRN Reason: Protocol Stop: 03/24/18 15:46 Last Admin: 09/26/17 08:29 Dose: Not Given Omeprazole (Prilosec) 40 mg PO DAILY [facility] Stop: 03/24/18 09:01 Last Admin: 09/26/17 08:32 Dose: 40 mg Simvastatin (Zocor) 20 mg PO HS [facility] Stop: 03/23/18 21:01 Last Admin: 09/25/17 20:18 Dose: 20 mg Warfarin Sodium (Coumadin Perpt) 1 each PO RPHPROT [facility] Stop: 03/24/18 18:01 Laboratory Tests 09/26/17 05:10 INR 1.4 - Imaging and Cardiology Chest Xray: report reviewed Echo: report reviewed - EKG Interpretation EKG results cardiology: personally reviewed (ECG today with SR, HR 62. QT 463/ QTc 469ms.), other (Telemetry reviewed with average HR previous 12 hours noted to be 68, SR. PVCs and PACs noted. 3 short runs of atrial tachycardia noted.) - VTE Reasons for not Prescribing Prophylaxis: Not indicated-Anticoagulated or INR therapeutic Consult Discharge Plan - Plan Referrals: Hansel Villatoro [Primary Care Provider] - 09/27/17 8:30 am Prescriptions: Enoxaparin [Lovenox] 110 mg SQ Q12HR #6 syringe Amiodarone [Cordarone] 200 mg PO BID #12 tablet Amiodarone [Cordarone] 200 mg PO DAILY 30 Days #30 tablet Furosemide [Lasix] 60 mg PO DAILY #45 tablet Warfarin [Coumadin] 5 mg PO 1800 #15 tablet
--- NOTE | 2017-09-27 06:21 | Electrocardiograph Report ---
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
--- NOTE | 2017-09-27 06:22 | Electrocardiograph Report ---
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
--- NOTE | 2017-09-27 08:02 | Electrocardiograph Report ---
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
== END 2017-09-26 10:57 | disposition home or self-care (01) | DRG 308 ==
LOC: EMEROO 14:11 → INTOOBSV 16:59 → 2NNU 16:59 → SUATTDRO 09-22 10:46
PROVIDERS: ADMIT Internal Medicine; ATTEND Internal Medicine

== ENCOUNTER 2020-03-09 09:47 | Inpatient (IN) ==
[2020-03-09 12:40] LABS: Adenovirus Not Detected (Not Detect); Bordetella Pertussis Not Detected (Not Detect); Chlamydophila pneumoniae Not Detected (Not Detect); Coronavirus 229E Not Detected (Not Detect); Coronavirus HKU1 Not Detected (Not Detect); Coronavirus NL63 Not Detected (Not Detect); Coronavirus OC43 Not Detected (Not Detect); Human Metapneumovirus Not Detected (Not Detect); Human Rhinovirus/Enterovirus Not Detected (Not Detect); Influenza A Subtype 2009 H1 Not Detected (Not Detect); Influenza B Not Detected (Not Detect); Mycoplasma pneumoniae Not Detected (Not Detect); Parainfluenza Virus 1 Not Detected (Not Detect); Parainfluenza Virus 2 Not Detected (Not Detect); Parainfluenza Virus 3 Not Detected (Not Detect); Parainfluenza Virus 4 Not Detected (Not Detect); Respiratory Syncytial Virus Not Detected (Not Detect); SARS-CoV-2 Not Detected (Not Detect)
[2020-03-09] MEDS ORDERED: Naloxone 0.4 MG/ML INJ IVP PRN ×2 (14:02→20:11)
[2020-03-09 14:24] LABS: Hematocrit 43.5 % (37.5-50.1); Hemoglobin 14.4 g/dL (12.9-16.9); Mean Corpuscular HGB Conc 33.1 g/dL (31.6-35.5); Mean Corpuscular Volume 99.5 fL (83.0-100.0); Mean Platelet Volume 9.1 fL (9.4-12.4); Platelet Count 218 K/mcL (140-400); Red Blood Count 4.37 M/mcL (4.19-5.50); Red Cell Distribution Width 13.6 % (11.5-14.5); White Blood Count 16.1 K/mcL (4.3-11.1)
[2020-03-09 14:25] LABS: Prothrombin Time 11.8 Seconds (9.4-12.1)
[2020-03-09 15:13] LABS: Alanine Aminotransferase 92 Units/L (7-52); Albumin 3.3 g/dL (3.5-5.7); Albumin/Globulin Ratio 1.4 (1.1-2.2); Alkaline Phosphatase 188 Units/L (34-104); Aspartate Amino Transferase 104 Units/L (13-39); BUN/Creatinine Ratio 34 (6-26); Bilirubin,Direct 0.3 mg/dL (0.0-0.2); Bilirubin,Indirect 0.7 mg/dL (0.0-1.0); Blood Urea Nitrogen 25 mg/dL (8-23); C-Reactive Protein 31 mg/L (Less than 10); Calcium 8.7 mg/dL (8.6-10.3); Carbon Dioxide 34 mEq/L (23-29); Chloride 103 mEq/L (98-107); Creatine Kinase 125 Units/L (30-223); Globulin 2.3 g/dL (2.4-3.5); Glucose 117 mg/dL (70-105); Lactate Dehydrogenase 1621 Units/L (140-271); Magnesium 2.2 mg/dL (1.6-2.6); Osmolality,Calculated 299 (280-300); Sodium 142 mEq/L (136-145); Total Protein 5.6 g/dL (6.4-8.9); eGFR For African Americans > 60 (> 60); eGFR For Non-African Americans > 60 (> 60)
[2020-03-09] MEDS ORDERED: Isovue-370 500 ML BOTTLE IVP ONE (15:34)
[2020-03-09] MEDS ORDERED: 0.9 % Sodium Chloride 1,000 ML IVC ONE (15:53)
[2020-03-09] MEDS: *HR* Heparin 5,000 UNIT/ML VIAL SQ SCH (16:09)
[2020-03-09] MEDS ORDERED: Perflutren Lipid Microsphere 1.3 ML in 0.9 % Sodium Chloride 8.7 ML IVP PRN (16:16)
[2020-03-09 17:04] LABS: Uric Acid 5.2 mg/dL (2.3-7.6)
[2020-03-09] MEDS ORDERED: Potassium Phosphate 44 MEQ in 0.9 % Sodium Chloride 250 ML IVPB ONE (18:43)
[2020-03-09] MEDS ORDERED: Vancomycin 0 MG in 0.9 % Sodium Chloride 250 ML IVPB SCH (19:00)
[2020-03-09] MEDS ORDERED: Piperacillin/Tazobactam 3.375 GM VIAL ONE (19:47)
[2020-03-09] MEDS: Gabapentin 300 MG CAPSULE PO SCH (20:20)
[2020-03-09] MEDS: Piperacillin/Tazobactam 3.375 GM in 0.9 % Sodium Chloride Mini Bag 100 ML IVPB SCH (20:21)
[2020-03-09] MEDS: Vancomycin 1,500 MG/265 ML IV.SOLN IVPB SCH (21:43)
[2020-03-10] MEDS: Piperacillin/Tazobactam 3.375 GM in 0.9 % Sodium Chloride Mini Bag 100 ML IVPB SCH ×3 (03:48→19:55)
[2020-03-10] MEDS: *HR* Heparin 5,000 UNIT/ML VIAL SQ SCH ×3 (06:05→21:57)
[2020-03-10] MEDS: Budesonide/Formoterol 160/4.5 1 PUFF INH IH SCH ×2 (07:30→19:44)
[2020-03-10] MEDS: Tiotropium 18 MCG inhalation IH SCH (07:31)
[2020-03-10] MEDS: Finasteride 5 MG TABLET PO SCH (07:39)
[2020-03-10] MEDS: Gabapentin 300 MG CAPSULE PO SCH ×3 (07:39→19:55)
[2020-03-10] MEDS: Vancomycin 1,500 MG/265 ML IV.SOLN IVPB SCH (07:42)
[2020-03-10] MEDS ORDERED: *HR* Rocuronium Bromide 50 MG/5 ML VIAL ONE (08:41)
[2020-03-10] MEDS ORDERED: Dexamethasone 4 MG/ML VIAL ONE (08:42)
[2020-03-10] MEDS ORDERED: Ondansetron 4 MG/2 ML VIAL ONE (08:42)
[2020-03-10] MEDS ORDERED: Lidocaine -MPF 2% 2 ML VIAL ONE (08:42)
[2020-03-10] MEDS ORDERED: *HR* FentaNYL (PF) 100 MCG/2 ML VIAL ONE (08:42)
[2020-03-10] MEDS ORDERED: Lidocaine -MPF 4% 5 ML AMPUL ONE (08:42)
[2020-03-10] MEDS ORDERED: *HR* HYDROmorphone PF 0.5 MG/0.5 ML SYRINGE IVP PRN (08:51)
[2020-03-10] MEDS ORDERED: Ondansetron 4 MG/2 ML VIAL IVP ONE (08:51)
[2020-03-10] MEDS ORDERED: *HR* OxyCODONE Immed Rel 5 MG TABLET PO PRN (08:51)
[2020-03-10] MEDS ORDERED: *HR* PHENYLEPHRINE 1,000 MCG/10 ML SYRINGE IVP ONE ×2 (09:16→09:49)
[2020-03-10] MEDS ORDERED: *HR* EPINEPHrine 1 MG/10 ML SYRINGE INTRATRACH PRN (09:17)
[2020-03-10] MEDS ORDERED: EPHEDrine 50 MG/ML VIAL ONE (09:20)
[2020-03-10 10:23] LABS: Hematocrit 47.7 % (37.5-50.1); Hemoglobin 15.3 g/dL (12.9-16.9); Mean Corpuscular HGB Conc 32.1 g/dL (31.6-35.5); Mean Corpuscular Hemoglobin 32.6 pg (28.0-33.3); Mean Corpuscular Volume 101.5 fL (83.0-100.0); Mean Platelet Volume 9.7 fL (9.4-12.4); Platelet Count 250 K/mcL (140-400); White Blood Count 16.5 K/mcL (4.3-11.1)
[2020-03-10 10:39] LABS: BUN/Creatinine Ratio 33 (6-26); Blood Urea Nitrogen 26 mg/dL (8-23); Calcium 9.1 mg/dL (8.6-10.3); Carbon Dioxide 32 mEq/L (23-29); Chloride 102 mEq/L (98-107); Glucose 105 mg/dL (70-105); Magnesium 2.3 mg/dL (1.6-2.6); Osmolality,Calculated 303 (280-300); Phosphorous 2.9 mg/dL (2.7-4.5); Potassium 3.1 mEq/L (3.5-5.1); Sodium 144 mEq/L (136-145); eGFR For African Americans > 60 (> 60); eGFR For Non-African Americans > 60 (> 60)
[2020-03-10 15:08] LABS: Appearance of Body Fluid Cloudy (Clear)
[2020-03-10 15:09] LABS: Volume of Body Fluid 21 mL
[2020-03-10] MEDS ORDERED: Gadolinium Contrast Agent (WT Based) IV PRN (16:28)
[2020-03-10] MEDS: Vancomycin 1,750 MG/517.5 ML IV.SOLN IVPB SCH (21:30)
[2020-03-11 06:01] LABS: Basophils % 0.2 %; Hematocrit 40.7 % (37.5-50.1); Immature Granulocytes % 1.5 % (0-4); Lymphocytes # 0.7 K/mcL (0.6-4.6); Lymphocytes % 4.1 %; Mean Corpuscular HGB Conc 33.2 g/dL (31.6-35.5); Mean Corpuscular Hemoglobin 33.8 pg (28.0-33.3); Mean Corpuscular Volume 101.8 fL (83.0-100.0); Mean Platelet Volume 9.5 fL (9.4-12.4); Monocytes # 0.5 K/mcL (0.0-1.3); Monocytes % 3.2 %; Neutrophils # 14.3 K/mcL (1.6-8.9); Platelet Count 206 K/mcL (140-400); Red Cell Distribution Width 13.8 % (11.5-14.5); White Blood Count 15.7 K/mcL (4.3-11.1)
[2020-03-11 06:02] LABS: Hemoglobin 13.5 g/dL (12.9-16.9)
[2020-03-11] MEDS: Piperacillin/Tazobactam 3.375 GM in 0.9 % Sodium Chloride Mini Bag 100 ML IVPB SCH ×2 (06:03→11:35)
[2020-03-11] MEDS: *HR* Heparin 5,000 UNIT/ML VIAL SQ SCH (06:05)
[2020-03-11 06:17] LABS: BUN/Creatinine Ratio 33 (6-26); Blood Urea Nitrogen 26 mg/dL (8-23); Calcium 8.7 mg/dL (8.6-10.3); Carbon Dioxide 29 mEq/L (23-29); Chloride 105 mEq/L (98-107); Glucose 148 mg/dL (70-105); Osmolality,Calculated 302 (280-300); Sodium 142 mEq/L (136-145); eGFR For African Americans > 60 (> 60); eGFR For Non-African Americans > 60 (> 60)
[2020-03-11] MEDS: Finasteride 5 MG TABLET PO SCH (07:44)
[2020-03-11] MEDS: Gabapentin 300 MG CAPSULE PO SCH (07:44)
[2020-03-11] MEDS: Tiotropium 18 MCG inhalation IH SCH (08:00)
[2020-03-11] MEDS: Budesonide/Formoterol 160/4.5 1 PUFF INH IH SCH (08:01)
[2020-03-11] MEDS: Vancomycin 1,750 MG/517.5 ML IV.SOLN IVPB SCH (08:31)
[2020-03-11 12:06] VITALS: BP 130/89
== END 2020-03-11 13:17 | disposition home or self-care (01) | DRG 853 ==
LOC: CDU → SUATTDRO 11:13 → 2NNU 13:11
PROVIDERS: ADMIT Internal Medicine; ATTEND Internal Medicine